=== PATIENT | female | born 1940 | race Caucasian/White ===

== ENCOUNTER 2017-04-11 11:20 | Inpatient (IN) | payer OTHER ==
[~2017-04-11] VITALS: Ht 165.1 cm; Wt 74.3 kg
[~2017-04-11 11:20] MED LIST: ALEN70TA2 OR; CHOLESTID
[2017-04-11] MEDS ORDERED: PANTOPRAZOLE 40 MG/10 ML VIAL IV STA (11:55)
[2017-04-11] MEDS ORDERED: SODIUM CHLORIDE 0.9% 500 ML IVB ONE (11:55)
[2017-04-11] MEDS ORDERED: HYDROmorphone HCL 2 MG/ML VL IV ONE (12:00)
[2017-04-11] MEDS ORDERED: MORPHINE SULFATE 10 MG/ML INJ 1ML SDV IV ONE (12:00)
[2017-04-11] MEDS ORDERED: ONDANSETRON HCL 4 MG/2 ML VIAL IV ONE (12:45)
[2017-04-11 12:59] LABS: Basophils # (auto) 0 uL; Basophils % (auto) 0.6 % (0.0-2.0); Eosinophils # (auto) 0 uL; Eosinophils % (auto) 0.1 % (0.0-7.0); Hematocrit 45.8 % (36.0-46.0); Hemoglobin 15.7 g/dL (12.2-16.2); Lymphocytes # (auto) 0.8 uL; Lymphocytes % (auto) 13.2 % (10.0-50.0); Mean Corpuscular Hemoglobin 29.2 pg (28.0-32.0); Mean Corpuscular Hgb Conc. 34.3 g/dL (32.0-36.0); Mean Corpuscular Volume 85.2 fL (80.0-100.0); Monocytes # (auto) 0.4 uL; Monocytes % (auto) 7.1 % (0.0-12.0); Neutrophils # (auto) 4.9 uL; Nucleated Red Blood Cells % 0.1 %; Platelet Count (auto) 169 10^3/uL (140-450); Red Blood Cells 5.38 10^6/uL (4.0-5.20); Red Cell Distribution Width 14.4 % (11.8-14.3); White Blood Cell 6.3 10^3/uL (4.4-10.8)
[2017-04-11 14:09] LABS: Alanine Aminotransferase 19 U/L (13-56); Alkaline Phosphatase 80 U/L (45-117); Amylase 44 U/L (25-115); Anion Gap 11 (5-15); Aspartate Aminotransferase 13 U/L (15-37); BUN/Creatinine Ratio 12.9; Bilirubin, Total 0.6 mg/dL (0.2-1.0); Blood Urea Nitrogen 11 mg/dL (7-18); Carbon Dioxide 23 mmol/L (21-32); Chloride 105 mmol/L (98-107); GFR African American 84 mL/min; GFR Non-African American 69 mL/min; Glucose 103 mg/dL (74-106); Lipase 107 U/L (73-393); Magnesium 2.3 mg/dL (1.6-2.6); Sodium 139 mmol/L (136-145); Total Protein 7.8 g/dL (6.4-8.2)
[2017-04-11] MEDS ORDERED: HYDROcodone-ACET 5/325MG TAB PO PRN (14:45)
[2017-04-11] MEDS ORDERED: ONDANSETRON HCL 4 MG/2 ML VIAL IV PRN (14:45)
[2017-04-11] MEDS ORDERED: PANTOPRAZOLE 40 MG/10 ML VIAL IV ONE (14:45)
[2017-04-11] MEDS: SODIUM CHLORIDE 0.9% 1,000 ML IV SCH (15:10)
[2017-04-11] MEDS ORDERED: PROMETHAZINE HCL 25 MG/ML 1ML IV ONE (15:30)
[2017-04-11 17:20] VITALS: BP 121/70
[2017-04-11] MEDS ORDERED: INFLUENZA QUAD 2017-2018 0.5 ML SYRG IM ONE (18:30)
[2017-04-11 22:00] VITALS: BP 132/70
[2017-04-11] MEDS: PANTOPRAZOLE 40 MG/10 ML VIAL IV SCH (22:30)
[2017-04-11 22:35] LABS: Urine Bacteria FEW /hpf (None Seen); Urine Blood 1+ /uL (Negative); Urine Mucus FEW (None Seen); Urine Specific Gravity 1.021 (1.001-1.035); Urine WBC 2 /hpf (0 - 5)
[2017-04-12] MEDS: SODIUM CHLORIDE 0.9% 1,000 ML IV SCH ×3 (01:22→23:35)
[2017-04-12 05:32] VITALS: BP 114/50
[2017-04-12] MEDS: HYDROmorphone HCL 2 MG/ML VL IV PRN ×4 (06:05→20:09)
[2017-04-12 07:35] LABS: Basophils # (auto) 0 uL; Basophils % (auto) 0.8 % (0.0-2.0); Eosinophils # (auto) 0 uL; Eosinophils % (auto) 0.2 % (0.0-7.0); Hematocrit 40.5 % (36.0-46.0); Hemoglobin 13.7 g/dL (12.2-16.2); Lymphocytes # (auto) 0.8 uL; Lymphocytes % (auto) 16.2 % (10.0-50.0); Mean Corpuscular Hemoglobin 29.3 pg (28.0-32.0); Mean Corpuscular Volume 86.3 fL (80.0-100.0); Monocytes # (auto) 0.5 uL; Monocytes % (auto) 10.2 % (0.0-12.0); Neutrophils # (auto) 3.8 uL; Neutrophils % (auto) 72.6 % (37.0-80.0); Nucleated Red Blood Cells % 0.1 %; Platelet Count (auto) 129 10^3/uL (140-450); Red Blood Cells 4.69 10^6/uL (4.0-5.20); Red Cell Distribution Width 14.3 % (11.8-14.3); White Blood Cell 5.2 10^3/uL (4.4-10.8)
[2017-04-12 07:48] LABS: INR 0.99 (0.9-1.15); Partial Thromboplastin Time 25.3 sec (22.64-33.71); Prothrombin Time 10.8 sec (9.37-12.3)
[2017-04-12 07:50] LABS: BUN/Creatinine Ratio 16.9; Calcium 7.6 mg/dL (8.5-10.1); Potassium 3.6 mmol/L (3.5-5.1)
[2017-04-12] MEDS: PANTOPRAZOLE 40 MG/10 ML VIAL IV SCH ×2 (08:40→21:07)
[2017-04-12 09:00] VITALS: BP 140/72
[2017-04-12] MEDS ORDERED: PANTOPRAZOLE 40 MG/10 ML VIAL IV SCH (10:00)
[2017-04-12] MEDS ORDERED: LORazepam 2MG/ML-1ML VIAL IV ONE (12:15)
[2017-04-12 13:00] VITALS: BP 123/69
[2017-04-12] MEDS: GABAPENTIN 100 MG CAP PO SCH ×2 (13:00→21:07)
[2017-04-12] MEDS: PROMETHAZINE HCL 25 MG/ML 1ML IV PRN ×2 (15:10→20:09)
[2017-04-12] MEDS ORDERED: IOHEXOL 300 MG/ML 100ML BOTTLE IJ ONE (15:34)
[2017-04-12 17:00] VITALS: BP 123/95
[2017-04-12] MEDS: SUCRALFATE 1 GM/10 ML ORAL SUSP PO SCH ×2 (17:15→21:06)
[2017-04-12] MEDS: METHYLPREDNISOLONE 4 MG TAB PO SCH ×2 (18:26→23:36)
[2017-04-12 22:00] VITALS: BP 120/72
[2017-04-13] MEDS: HYDROmorphone HCL 2 MG/ML VL IV PRN ×6 (03:05→18:25)
[2017-04-13] MEDS: METHYLPREDNISOLONE 4 MG TAB PO SCH ×3 (05:45→18:00)
[2017-04-13] MEDS: GABAPENTIN 100 MG CAP PO SCH ×3 (05:46→21:43)
[2017-04-13] MEDS: SUCRALFATE 1 GM/10 ML ORAL SUSP PO SCH (05:46)
[2017-04-13] MEDS: SODIUM CHLORIDE 0.9% 1,000 ML IV SCH ×2 (06:45→16:45)
[2017-04-13 08:30] VITALS: BP 122/57
[2017-04-13] MEDS ORDERED: diphenhdrAMINE HCL 50 MG/1 ML VL ONE (08:30)
[2017-04-13] MEDS ORDERED: LIDOCAINE VISCOUS 2% 15ML UD ONE (08:30)
[2017-04-13] MEDS ORDERED: SODIUM CHLORIDE LOCK 10 ML ONE (08:30)
[2017-04-13] MEDS ORDERED: FLUMAZENIL 0.1 MG/ML INJ 10ML MDV IV ONE (08:30)
[2017-04-13] MEDS ORDERED: MIDAZOLAM HCL 5 MG/ML-1ML VIAL ONE (08:30)
[2017-04-13] MEDS ORDERED: NALOXONE HCL 0.4 MG/ML VIAL ONE (08:30)
[2017-04-13] MEDS ORDERED: fentaNYL CITRATE 100 MCG/2 ML VL ONE (08:31)
[2017-04-13] MEDS ORDERED: IBUPROFEN 600 MG TAB PO PRN (09:15)
[2017-04-13] MEDS: PANTOPRAZOLE 40 MG TAB PO SCH (10:00)
[2017-04-13] MEDS: PROMETHAZINE HCL 25 MG/ML 1ML IV PRN (10:45)
[2017-04-13] MEDS ORDERED: cefTRIAXone 1GM/50ML D5W 50 ML IV ONE (12:15)
[2017-04-13 12:30] VITALS: BP 174/61
[2017-04-13] MEDS: metroNIDAZOLE 500MG/100ML 100 ML IV SCH ×2 (16:14→21:43)
[2017-04-13 17:37] VITALS: BP 182/88
[2017-04-13] MEDS ORDERED: KETOROLAC TROMETH 30 MG/ML 1ML VIAL IV SCH (18:00)
[2017-04-13] MEDS: KETOROLAC TROMETH 30 MG/ML 1ML VIAL IV SCH (20:25)
[2017-04-13 21:00] VITALS: BP 154/101
[2017-04-14] MEDS: HYDROmorphone HCL 2 MG/ML VL IV PRN ×2 (01:25→06:41)
[2017-04-14] MEDS: KETOROLAC TROMETH 30 MG/ML 1ML VIAL IV SCH ×3 (02:27→14:05)
[2017-04-14] MEDS: SODIUM CHLORIDE 0.9% 1,000 ML IV SCH ×3 (05:21→22:45)
[2017-04-14 05:47] VITALS: BP 147/72
[2017-04-14] MEDS: metroNIDAZOLE 500MG/100ML 100 ML IV SCH ×2 (05:50→14:05)
[2017-04-14] MEDS: GABAPENTIN 100 MG CAP PO SCH ×3 (05:50→21:49)
[2017-04-14] MEDS: METHYLPREDNISOLONE 4 MG TAB PO SCH ×4 (05:50→11:47)
[2017-04-14] MEDS: cefTRIAXone 1GM/50ML D5W 50 ML IV SCH (08:28)
[2017-04-14] MEDS: PANTOPRAZOLE 40 MG TAB PO SCH (08:29)
[2017-04-14 09:11] VITALS: BP 129/70
[2017-04-14 12:51] VITALS: BP 127/66
[2017-04-14 16:45] VITALS: BP 105/71
[2017-04-14] MEDS: metroNIDAZOLE 500 MG TAB PO SCH (21:49)
[2017-04-14 22:00] VITALS: BP 135/57
[2017-04-15 05:00] VITALS: BP 121/54
[2017-04-15 05:43] LABS: Basophils # (auto) 0.1 uL; Basophils % (auto) 0.9 % (0.0-2.0); Eosinophils # (auto) 0.3 uL; Eosinophils % (auto) 4.5 % (0.0-7.0); Hematocrit 39.8 % (36.0-46.0); Hemoglobin 13.7 g/dL (12.2-16.2); Lymphocytes # (auto) 1.3 uL; Lymphocytes % (auto) 22.7 % (10.0-50.0); Mean Corpuscular Hgb Conc. 34.3 g/dL (32.0-36.0); Mean Corpuscular Volume 84.6 fL (80.0-100.0); Monocytes # (auto) 0.8 uL; Monocytes % (auto) 14.1 % (0.0-12.0); Neutrophils # (auto) 3.3 uL; Neutrophils % (auto) 57.8 % (37.0-80.0); Nucleated Red Blood Cells % 0.6 %; Platelet Count (auto) 126 10^3/uL (140-450); Red Blood Cells 4.71 10^6/uL (4.0-5.20); Red Cell Distribution Width 14.2 % (11.8-14.3); White Blood Cell 5.8 10^3/uL (4.4-10.8)
[2017-04-15 05:53] LABS: Calcium 7.9 mg/dL (8.5-10.1)
[2017-04-15 05:56] LABS: BUN/Creatinine Ratio 13.2
[2017-04-15 05:58] LABS: Potassium 2.4 mmol/L (3.5-5.1)
[2017-04-15] MEDS: GABAPENTIN 100 MG CAP PO SCH ×2 (06:09→13:44)
[2017-04-15] MEDS: metroNIDAZOLE 500 MG TAB PO SCH ×3 (06:09→22:01)
[2017-04-15] MEDS ORDERED: POTASSIUM CHL 20MEQ/50ML 50 ML IV ONE ×2 (06:15→08:00)
[2017-04-15 09:00] VITALS: BP 123/70
[2017-04-15] MEDS: PANTOPRAZOLE 40 MG TAB PO SCH (09:02)
[2017-04-15] MEDS: cefTRIAXone 1GM/50ML D5W 50 ML IV SCH (09:02)
[2017-04-15] MEDS ORDERED: POTASSIUM CHLORIDE 40 MEQ, LIDOCAINE 1% (LOCAL ANESTH.) 4 ML in SODIUM CHL 0.9% 250 ML IV ONE (11:15)
[2017-04-15] MEDS: DIPHENOXYLATE W/ATROPINE 2.5 MG TAB PO PRN ×2 (11:49→19:16)
[2017-04-15] MEDS: SODIUM CHLORIDE 0.9% 1,000 ML IV SCH ×2 (12:42→18:45)
[2017-04-15 13:00] VITALS: BP 113/43
[2017-04-15 17:00] VITALS: BP 139/73
[2017-04-15] MEDS ORDERED: COLESTIPOL 1 GM PO SCH (18:00)
[2017-04-15 22:00] VITALS: BP 144/72
[2017-04-16] MEDS: SODIUM CHLORIDE 0.9% 1,000 ML IV SCH (04:45)
[2017-04-16 05:30] VITALS: BP 147/75
[2017-04-16 05:53] LABS: Basophils # (auto) 0.1 uL; Eosinophils # (auto) 0.6 uL; Eosinophils % (auto) 7.6 % (0.0-7.0); Hematocrit 41.4 % (36.0-46.0); Hemoglobin 14.4 g/dL (12.2-16.2); Lymphocytes # (auto) 2.3 uL; Lymphocytes % (auto) 29.2 % (10.0-50.0); Mean Corpuscular Hemoglobin 29.5 pg (28.0-32.0); Mean Corpuscular Hgb Conc. 34.7 g/dL (32.0-36.0); Mean Corpuscular Volume 84.8 fL (80.0-100.0); Monocytes # (auto) 0.9 uL; Monocytes % (auto) 11.5 % (0.0-12.0); Neutrophils # (auto) 3.9 uL; Neutrophils % (auto) 50.7 % (37.0-80.0); Nucleated Red Blood Cells % 0.1 %; Platelet Count (auto) 147 10^3/uL (140-450); Red Blood Cells 4.88 10^6/uL (4.0-5.20); Red Cell Distribution Width 14.6 % (11.8-14.3); White Blood Cell 7.8 10^3/uL (4.4-10.8)
[2017-04-16 06:14] LABS: Albumin 2.7 g/dL (3.4-5.0); Calcium 7.6 mg/dL (8.5-10.1)
[2017-04-16 06:16] LABS: BUN/Creatinine Ratio 6.6
[2017-04-16 06:18] LABS: Bilirubin, Total 0.4 mg/dL (0.2-1.0)
[2017-04-16 06:28] LABS: Potassium 2.5 mmol/L (3.5-5.1)
[2017-04-16] MEDS: metroNIDAZOLE 500 MG TAB PO SCH ×2 (06:36→14:04)
[2017-04-16 10:08] VITALS: BP 136/81
[2017-04-16] MEDS: PANTOPRAZOLE 40 MG TAB PO SCH (10:48)
[2017-04-16 13:34] VITALS: BP 142/79
[2017-04-16] MEDS: DIPHENOXYLATE W/ATROPINE 2.5 MG TAB PO PRN (14:04)
[2017-04-16] MEDS ORDERED: POTASSIUM CHL 10% (20 MEQ/15ML) 15ml ORAL SOLN PO ONE (14:15)
[2017-04-16] MEDS ORDERED: POTASSIUM CHL 10% (20 MEQ/15ML) 15ml ORAL SOLN GT ONE (14:15)
[2017-04-16 15:05] VITALS: BP 136/81
[2017-04-16 16:31] VITALS: BP 137/75
== END 2017-04-16 17:30 | disposition home or self-care (01) | DRG 372 ==
LOC: ER 11:20 → OVERFLOW 11:21 → EDUNIT# 11:21 → EAST 16:23 → WEST WING 18:18
PROVIDERS: ADMIT Internal Medicine; ATTEND Internal Medicine
PROC: 0DB78ZX Excision of Stomach, Pylorus, Via Natural or Artificial Opening Endoscopic, Diagnostic (ICD-10-PCS; principal; 2017-04-13 09:05)
DX: A04.72 Enterocolitis due to Clostridium difficile, not specified as recurrent (principal); M48.54XA Collapsed vertebra, not elsewhere classified, thoracic region, initial encounter for fracture; M48.56XA Collapsed vertebra, not elsewhere classified, lumbar region, initial encounter for fracture; E87.6 Hypokalemia; E78.5 Hyperlipidemia, unspecified; I70.0 Atherosclerosis of aorta; Z60.2 Problems related to living alone; K52.9 Noninfective gastroenteritis and colitis, unspecified; M94.0 Chondrocostal junction syndrome [Tietze]; Z23 Encounter for immunization; Z90.49 Acquired absence of other specified parts of digestive tract; Z90.710 Acquired absence of both cervix and uterus; Z95.0 Presence of cardiac pacemaker
CPT/HCPCS: 36415; 43239; 71010; 71101; 74176; 74177; 80048; 80053; 81001; 82150; 83690; 83735; 84484; 85025; 85610; 85730; 87493; 93005; 94761; 96361; 96374; 96375; C9113; J0696; J1885; J2001; J2250; J2405; J3490

== ENCOUNTER → 2017-05-12 | Outpatient (CLI) | payer OTHER ==
[2017-05-12 10:15] LABS: Basophils # (auto) 0 uL; Basophils % (auto) 0.4 % (0.0-2.0); Eosinophils # (auto) 0.4 uL; Hematocrit 44.9 % (36.0-46.0); Hemoglobin 14.9 g/dL (12.2-16.2); Mean Corpuscular Hemoglobin 29.4 pg (28.0-32.0); Mean Corpuscular Hgb Conc. 33.2 g/dL (32.0-36.0); Mean Corpuscular Volume 88.4 fL (80.0-100.0); Mean Platelet Volume 8.3 fL (6.9-10.8); Monocytes # (auto) 0.8 uL; Monocytes % (auto) 6.9 % (0.0-12.0); Neutrophils # (auto) 8.5 uL; Neutrophils % (auto) 72.7 % (37.0-80.0); Nucleated Red Blood Cells % 0.2 %; Platelet Count (auto) 253 10^3/uL (140-450); Red Cell Distribution Width 14.5 % (11.8-14.3); White Blood Cell 11.7 10^3/uL (4.4-10.8)
[2017-05-12 10:38] LABS: Albumin 3.6 g/dL (3.4-5.0); BUN/Creatinine Ratio 10.7; Bilirubin, Total 0.6 mg/dL (0.2-1.0); Calcium 8.9 mg/dL (8.5-10.1); Potassium 3.4 mmol/L (3.5-5.1); Total Protein 7.9 g/dL (6.4-8.2)
== END | disposition home or self-care (01) ==
LOC: LAB 09:27
PROVIDERS: ATTEND Internal Medicine
DX: J40 Bronchitis, not specified as acute or chronic (principal)
CPT/HCPCS: 36415; 80053; 84439; 85025

== ENCOUNTER → 2017-08-29 | Outpatient (CLI) | payer OTHER | END | disposition home or self-care (01) | LOC: XYW 11:05 | PROVIDERS: ATTEND Internal Medicine | DX: I35.1 Nonrheumatic aortic (valve) insufficiency (principal); Z95.0 Presence of cardiac pacemaker | CPT/HCPCS: 93306 ==

== ENCOUNTER → 2017-11-15 | Outpatient (CLI) | payer OTHER ==
[2017-11-15 08:49] LABS: Basophils # (auto) 0 uL; Basophils % (auto) 0.7 % (0.0-2.0); Eosinophils # (auto) 0.3 uL; Eosinophils % (auto) 4.9 % (0.0-7.0); Hematocrit 44.2 % (36.0-46.0); Hemoglobin 14.7 g/dL (12.2-16.2); Lymphocytes # (auto) 1.4 uL; Lymphocytes % (auto) 22.8 % (10.0-50.0); Mean Corpuscular Hemoglobin 28.9 pg (28.0-32.0); Mean Corpuscular Hgb Conc. 33.4 g/dL (32.0-36.0); Mean Corpuscular Volume 86.7 fL (80.0-100.0); Monocytes # (auto) 0.3 uL; Monocytes % (auto) 5.7 % (0.0-12.0); Neutrophils % (auto) 65.9 % (37.0-80.0); Platelet Count (auto) 146 10^3/uL (140-450); Red Blood Cells 5.09 10^6/uL (4.0-5.20); White Blood Cell 6.1 10^3/uL (4.4-10.8)
[2017-11-15 09:45] LABS: Albumin 3.8 g/dL (3.4-5.0); BUN/Creatinine Ratio 11.5; Bilirubin, Total 0.7 mg/dL (0.2-1.0); Potassium 3.9 mmol/L (3.5-5.1); Total Protein 7.1 g/dL (6.4-8.2)
[2017-11-16 11:49] LABS: Urine Bacteria MANY /hpf (None Seen); Urine Blood TRACE /uL (Negative); Urine Specific Gravity 1.011 (1.001-1.035); Urine WBC 2 /hpf (0 - 5)
== END | disposition home or self-care (01) ==
LOC: LAB 07:58
PROVIDERS: ATTEND Internal Medicine
DX: I10 Essential (primary) hypertension (principal); I47.1 Supraventricular tachycardia; Z95.0 Presence of cardiac pacemaker
CPT/HCPCS: 36415; 80053; 80061; 81001; 82043; 82306; 84439; 84443; 85025; 85652; 86038; 86431; 86812

== ENCOUNTER → 2018-01-08 | Outpatient (CLI) | payer OTHER ==
[2018-01-08 14:13] LABS: Albumin 3.9 g/dL (3.4-5.0); BUN/Creatinine Ratio 17.3; Bilirubin, Total 0.6 mg/dL (0.2-1.0); Calcium 8.7 mg/dL (8.5-10.1); Potassium 3.8 mmol/L (3.5-5.1); Total Protein 7.5 g/dL (6.4-8.2)
== END | disposition home or self-care (01) ==
LOC: LAB 12:56
PROVIDERS: ATTEND Internal Medicine
DX: E53.8 Deficiency of other specified B group vitamins (principal); I10 Essential (primary) hypertension; E55.9 Vitamin D deficiency, unspecified; E78.5 Hyperlipidemia, unspecified
CPT/HCPCS: 36415; 80053; 82306; 82607

== ENCOUNTER → 2018-02-22 | Outpatient (CLI) | payer OTHER | END | disposition home or self-care (01) | LOC: LAB 14:33 | PROVIDERS: ATTEND Internal Medicine | DX: R10.9 Unspecified abdominal pain (principal) | CPT/HCPCS: 82784; 83516; 86255 ==

== ENCOUNTER → 2018-02-26 | Outpatient (CLI) | payer OTHER | END | disposition home or self-care (01) | LOC: LAB 12:04 | PROVIDERS: ATTEND Internal Medicine Gastroenterology | DX: R10.9 Unspecified abdominal pain (principal) | CPT/HCPCS: 87045; 87493; 87899 ==

== ENCOUNTER 2018-10-01 16:35 | Inpatient (IN) | payer OTHER ==
[~2018-10-01] VITALS: Ht 165.1 cm; Wt 69.6 kg
[2018-10-01 17:30] VITALS: BP 109/63
--- NOTE | 2018-10-01 17:45 | NUR ---
MS admit from ER MAURIZIO FINE A admitted to tele/MS after SBAR received. Patient oriented to Gaby Jeronimo, primary RN, unit, room, bed, and unit policies regarding patient care and visiting hours. Patient weighed by bedscale and encouraged to call if they need something. All questions and concerns addressed, patient verbalized understanding. Pt denies any pain or discomfort at this time, paged hospitalist for admission orders.
[2018-10-01] MEDS ORDERED: MORPHINE SULF INJ 2 MG/ML SYRINGE 1ML IV PRN (18:30)
[2018-10-01] MEDS ORDERED: NITROGLYCERIN 0.4 MG SL TAB SL PRN (18:30)
--- NOTE | 2018-10-01 18:40 | NUR ---
Michelle / hospitalist at bed side to see pt.
[2018-10-01] MEDS ORDERED: POM PO (18:50)
[2018-10-01] MEDS ORDERED: ATEN-60 PO (18:50)
[2018-10-01] MEDS ORDERED: OMEP20TA PO (18:51)
--- NOTE | 2018-10-01 19:40 | NUR ---
Opening Shift Note Assumed care of patient, patient lying, awake, alert and oriented x 4 with clear speech and follows directions. On room air with even and unlabored respirations with no SOB or distress. Patient ate 25% of dinner with no nausea or vomiting and tolerated well. Patient independently turns in bed ambulates with steady gait. IV to right forearm intact and patent. Bed low locked position with side rails up x 2 and call light within reach. Instructed on POC and to call for assist PRN, will continue to monitor for changes Q1hr and PRN. Addendum: 10/02/18 at 2312 by Shanthi Page RN RN wrong date and time
[2018-10-01 19:58] LABS: Basophils # (auto) 0 uL; Basophils % (auto) 0.3 % (0.0-2.0); Eosinophils # (auto) 0.2 uL; Eosinophils % (auto) 3.2 % (0.0-7.0); Hematocrit 44.1 % (36.0-46.0); Hemoglobin 14.7 g/dL (12.2-16.2); Lymphocytes # (auto) 2.2 uL; Lymphocytes % (auto) 30.3 % (10.0-50.0); Mean Corpuscular Hgb Conc. 33.3 g/dL (32.0-36.0); Mean Corpuscular Volume 87.1 fL (80.0-100.0); Monocytes # (auto) 0.5 uL; Monocytes % (auto) 6.6 % (0.0-12.0); Neutrophils # (auto) 4.4 uL; Neutrophils % (auto) 59.6 % (37.0-80.0); Platelet Count (auto) 179 10^3/uL (140-450); Red Blood Cells 5.07 10^6/uL (4.0-5.20); White Blood Cell 7.3 10^3/uL (4.4-10.8)
--- NOTE | 2018-10-01 20:00 | NUR ---
Opening Shift Note Assumed care of patient, patient lying down resting, wakes to name, alert and oriented x 4 with clear speech and follows directions. On room air with even and unlabored respirations with no SOB or distress. Patient ate 25% of dinner with no nausea or vomiting and tolerated well. Active bowel sounds, abd soft, tender upon palpation to left upper abd. Patient reports 8/10 pain, headache, will follow up with pain medications per orders. Patient independently turns in bed ambulates with steady gait. IV to right forearm intact and patent. Bed low locked position with side rails up x 2 and call light within reach. Instructed on POC and to call for assist PRN, will continue to monitor for changes Q1hr and PRN.
[2018-10-01 20:13] LABS: INR 0.93 (0.9-1.15); Partial Thromboplastin Time 26.2 sec (23.78-33.04)
[2018-10-01] MEDS: ACETAMINOPHEN 500 MG TAB PO PRN (20:13)
[2018-10-01 20:14] LABS: Albumin 3.7 g/dL (3.4-5.0); Calcium 8.6 mg/dL (8.5-10.1); Potassium 3.6 mmol/L (3.5-5.1)
[2018-10-01 20:18] LABS: BUN/Creatinine Ratio 18.6; Bilirubin, Total 0.7 mg/dL (0.2-1.0); Total Protein 6.8 g/dL (6.4-8.2)
[2018-10-01] MEDS: HYDROcodone-ACET 5/325MG TAB PO PRN (20:19)
[2018-10-01 22:00] VITALS: BP 131/60
[2018-10-02 05:00] VITALS: BP 120/52
--- NOTE | 2018-10-02 07:03 | NUR ---
Closing Note Patient sleeping with even and unlabored respirations, noted chest rise and fall. No s/s of distress. endorsed care to day shift RN.
--- NOTE | 2018-10-02 07:30 | NUR ---
STATUS PT RESTING IN BED WITH EYES CLOSED. RESPIRATIONS EQUAL AND UNLABORED. PT IS NPO AT THIS TIME FOR POSSIBLE EGD. NO CURRENT S/S OF DISTRESS. WILL CONTINUE TO MONITOR.
--- NOTE | 2018-10-02 08:10 | NUR ---
DR MENDIETA PAGED TO CLARIFY POSSIBLE EGD STATUS, DUE TO PT BEING NPO. STATES HE WILL COME SEE THE PT LATER, NO NEW ORDERS GIVEN
[2018-10-02 08:48] LABS: Urine Bacteria FEW /hpf (None Seen); Urine Blood TRACE /uL (Negative); Urine Mucus FEW (None Seen); Urine Specific Gravity 1.021 (1.001-1.035); Urine WBC 88 /hpf (0 - 5)
[2018-10-02] MEDS: PANTOPRAZOLE 40 MG/10 ML VIAL INJ IV SCH ×3 (09:44→20:31)
--- NOTE | 2018-10-02 09:59 | NUR ---
MEDICATION PT REFUSED 1000 MEDICATION STATING SHE FELT LIKE SHE DIDN'T NEED IT AT THIS TIME.
[2018-10-02] MEDS ORDERED: CEFTRIAXONE SODIUM 2 GM in D5W 5% 50 ML IV ONE (10:00)
--- NOTE | 2018-10-02 12:36 | NUR ---
DR BERTRAND AT BEDSIDE ORDERS GIVEN FOR IMODIUM AND STOOL FOR C.DIF
[2018-10-02] MEDS ORDERED: LOPERAMIDE HCL 2 MG CAP PO PRN (12:45)
[2018-10-02 13:00] VITALS: BP 130/59
--- NOTE | 2018-10-02 14:00 | NUR ---
DR MENDIETA AT BEDSIDE PT SCHEDULED FOR EGD TOMORROW
[2018-10-02 17:00] VITALS: BP 138/60
--- NOTE | 2018-10-02 19:40 | NUR ---
Opening Shift Note Assumed care of patient, patient lying, awake, alert and oriented x 4 with clear speech and follows directions. On room air with even and unlabored respirations with no SOB or distress. Patient ate 25% of dinner with no nausea or vomiting and tolerated well. Patient report diarrhea, and states it is a chronic problem. Patient independently turns in bed ambulates with steady gait. IV to right forearm intact and patent. Bed low locked position with side rails up x 2 and call light within reach. Instructed on POC and to call for assist PRN, will continue to monitor for changes Q1hr and PRN.
[2018-10-02] MEDS: LOPERAMIDE HCL 2 MG CAP PO PRN (20:31)
[2018-10-02 22:03] VITALS: BP 145/69
[2018-10-02] MEDS: HYDROcodone-ACET 5/325MG TAB PO PRN (22:47)
[2018-10-03 05:16] VITALS: BP 113/56
[2018-10-03 06:02] LABS: Basophils # (auto) 0 uL; Basophils % (auto) 0.7 % (0.0-2.0); Eosinophils # (auto) 0.4 uL; Eosinophils % (auto) 6.4 % (0.0-7.0); Hematocrit 41.3 % (36.0-46.0); Hemoglobin 14.1 g/dL (12.2-16.2); Lymphocytes % (auto) 31.4 % (10.0-50.0); Mean Corpuscular Hemoglobin 29.9 pg (28.0-32.0); Mean Corpuscular Hgb Conc. 34.2 g/dL (32.0-36.0); Mean Corpuscular Volume 87.5 fL (80.0-100.0); Monocytes # (auto) 0.5 uL; Monocytes % (auto) 8.5 % (0.0-12.0); Neutrophils # (auto) 3.3 uL; Nucleated Red Blood Cells % 0.2 %; Platelet Count (auto) 153 10^3/uL (140-450); Red Blood Cells 4.72 10^6/uL (4.0-5.20); White Blood Cell 6.3 10^3/uL (4.4-10.8)
[2018-10-03 06:29] LABS: Albumin 3.3 g/dL (3.4-5.0); BUN/Creatinine Ratio 22.1; Magnesium 2.2 mg/dL (1.6-2.6); Potassium 3.7 mmol/L (3.5-5.1)
[2018-10-03 06:32] LABS: Bilirubin, Total 0.7 mg/dL (0.2-1.0); Total Protein 6.2 g/dL (6.4-8.2)
--- NOTE | 2018-10-03 07:10 | NUR ---
Closing Note Patient sleeping with even and unlabored respirations, noted chest rise and fall. No s/s of distress. endorsed care to day shift RN.
[2018-10-03 08:00] VITALS: BP 106/62
[2018-10-03 09:00] VITALS: BP 106/62
[2018-10-03] MEDS ORDERED: cefTRIAXone 1GM/50ML D5W 50 ML IV SCH (09:00)
[2018-10-03] MEDS: PANTOPRAZOLE 40 MG/10 ML VIAL INJ IV SCH (09:35)
[2018-10-03] MEDS ORDERED: LIDOCAINE VISCOUS 2% 15ML UD ONE (10:41)
[2018-10-03] MEDS ORDERED: SODIUM CHLORIDE LOCK 10 ML ONE (10:41)
[2018-10-03] MEDS ORDERED: diphenhdrAMINE HCL 50 MG/1 ML VL ONE (10:42)
--- NOTE | 2018-10-03 12:25 | NUR ---
PATIENT OFF FLOOR PATIENT TRANSPORTED TO [facility] VIA GURNEY BY THIS RN AND JULIA GOMES, NO S/S SOB/PAIN/DISTRESS NOTED
[2018-10-03] MEDS: fentaNYL CITRATE 100 MCG/2 ML VL ONE ×2 (12:45→12:48)
[2018-10-03] MEDS: MIDAZOLAM HCL 5 MG/ML-1ML VIAL ONE ×2 (12:45→12:48)
[2018-10-03 13:00] VITALS: BP 110/50
--- NOTE | 2018-10-03 13:35 | NUR ---
PATIENT RETURNED TO FLOOR BEDSIDE REPORT GIVEN, PT QUESTIONS ANSWERED, PT IS CURRENTLY SLEEPY BUT EASILY AROUSES, PATIENTS IV INFILTRATED AND WAS REMOVED TOWARDS THE END OF THE PROCEDURE PER SERVICE SPRINKLER HELPER, A NEW IV LINE WAS NOT REINSERTED, THIS RN WILL PLACE NEW IV LINE
--- NOTE | 2018-10-03 13:50 | NUR ---
IV LINE RETURNED TO PT'S ROOM TO INSERT NEW IV LINE, PT REQUESTED TO WAIT AND PLACE IV LATER SHE WANTS A NAP RIGHT NOW, WILL ATTEMPT TO PLACE NEW IV LINE LATER
[2018-10-03 16:52] VITALS: BP 128/67
--- NOTE | 2018-10-03 17:26 | NUR ---
IV LINE SPOKE WITH PATIENT AGAIN ABOUT PLACING A NEW IV LINE, PATIENT HIGHLY PREFERS TO NOT HAVE A NEW IV, SHE REQUESTS THAT HER MEDICATIONS BE GIVEN PILLS RATHER THAN IV, EXPLAINED IMPORTANCE OF IV LINE TO PATIENT, PATIENT STILL REFUSING IV LINE AT THIS TIME
--- NOTE | 2018-10-03 19:30 | NUR ---
Opening Shift Note Assumed care of patient, awake and alert x4. No S/S of distress/SOB on room air. Denies pain at this time. NO IV at this time will page hospitalist patient is refusing new IV to be placed. Bed locked in lowest position call light within reach. Instructed on POC and to call for assist PRN, will continue to monitor for changes Q1hr and PRN.
--- NOTE | 2018-10-03 20:03 | NUR ---
Paged hospitalist regarding patient does not have IV access, patient refusing IV access. Patient stated she has been poked too many times. awaiting call back.
--- NOTE | 2018-10-03 21:00 | NUR ---
Hospitalist James called back made aware of patient REFUSING IV placement. Orders received read back and verified. see Orders.
[2018-10-03 22:01] VITALS: BP 95/57
[2018-10-04] VITALS (7 sets, daily range): BP systolic 98–123; BP diastolic 57–66
--- NOTE | 2018-10-04 07:45 | NUR ---
URINE SAMPLE PT WAS INSTRUCTED TO PROVIDE A URINE SAMPLE, HAT WAS PLACED IN TOILET, PT ACCIDENTLY "FORGOT" AND REMOVED THE HAT PRIOR TO URINATING, PT REEDUCATED ON URINATING IN THE HAT AND THEN CALLING THE NURSE TO COLLECT THE SAMPLE, PT VERBALIZED UNDERSTANDING
[2018-10-04] MEDS: CIPROFLOXACIN HCL 500 MG TAB PO SCH ×2 (10:49→22:00)
[2018-10-04] MEDS: HYDROcodone-ACET 5/325MG TAB PO PRN ×2 (10:50→17:16)
--- NOTE | 2018-10-04 11:59 | NUR ---
STOOL UPDATE PATIENT HAS NOT HAD A BOWEL MOVEMENT DURING DAY SHIFT TODAY OR YESTERDAY, PT STATES LAST BM WAS SATURDAY 09/30, UNABLE TO OBTAIN SAMPLES FOR C-DIFF, PATIENT WOULD ALSO NO LONGER MEET CRITERIA FOR C-DIFF SHE HAS HAD IMODIUM AND ANTIBIOTICS, HOSPITALIST WILL BE INFORMED
--- NOTE | 2018-10-04 17:14 | NUR ---
PAIN ATTEMPTING TO D/C PATIENT AND PT IS REFUSING, PT IS IN PAIN AND CRYING, PAGED, WILL AWAIT RETURN CALL
--- NOTE | 2018-10-04 17:53 | NUR ---
awaiting return call had substation design draftsperson hospitalist paged, patient is excessively vomiting, family is now in the room and very concerned with her condition, pt and family feel they are not ready for her to d/c, pt expresses intense pain in left flank radiating to back, pt was given another dose of norco, will await return call from
[2018-10-04] MEDS ORDERED: KETOROLAC TROMETH 60MG/2ML VIAL IM ONE (18:45)
--- NOTE | 2018-10-04 18:55 | NUR ---
MD AT BEDSIDE DR SOARES (THE PATIENTS FAMILY DOCTOR) WAS ROUNDING, SAW THE PT IN DISTRESS, NEW ORDERS FOR PAIN MEDS, D/C ORDER TO BE HELD FOR NOW
--- NOTE | 2018-10-04 19:30 | NUR ---
PATIENTS FAMILY UPSET AND PATIENT HAVING EXTREME LEFT SIDED PAIN 10/10 THAT RADIATES TO LEFT LOWER FLANK PAIN. ORDER FOR TORADOL IV. WILL ADMINISTER WITH ZOFRAN DUE TO VOMITING WELL. FAMILY AT BEDSIDE. CONTINUING TO MONITOR.
[2018-10-04] MEDS: ONDANSETRON HCL 4 MG/2 ML VIAL IV PRN (19:40)
[2018-10-04] MEDS: KETOROLAC TROMETH 30 MG/ML 1ML VIAL IV PRN (19:50)
--- NOTE | 2018-10-04 20:30 | NUR ---
Patient having some relief of pain at 12/19 from toradol. Will continue to monitor. Call light within reach. Addendum: 10/05/18 at 0512 by DAMIEN ALLEN RN Spoke with hospitalist around 2029 and told me we we will just monitor the patient .
--- NOTE | 2018-10-04 22:00 | NUR ---
Patient crying again and vomiting. Administered morphine per order and paged MD again. Gave ice chips and a heat pack again to try to help with her pain. Patient did not want me to leave the room. Stating "dont leave me, i cant take this." sat with patient and tried to make her comfortable for 30 minutes. Monitoring often. Held cipro due to emesis.
--- NOTE | 2018-10-04 22:30 | NUR ---
Spoke with Hospitalist howard, updated him again regarding patients pain which just started this evening and sounds like possible kidney stones. new order for ct abdomen/pelvis placed.
[2018-10-04] MEDS: MORPHINE SULF INJ 2 MG/ML SYRINGE 1ML IV PRN (23:52)
--- NOTE | 2018-10-05 04:00 | NUR ---
Resting well for the last 3-4 hours. No distress noted. Call light within reach and bed low
[2018-10-05 05:12] VITALS: BP 100/59
--- NOTE | 2018-10-05 07:10 | NUR ---
Opening Note Received report from material handler 2nd shift RN. Patient is awake, alert and oriented x4. No signs or symptoms of distress noted at this time. Patient states abdominal and left flank pain 8/10, is requesting pain medication. Will medicate per orders. Reviewed plan of care with patient, patient verbalized understanding. Bed in low and locked position, call light within reach. Will continue to monitor Q1 hour and PRN.
[2018-10-05] MEDS: MORPHINE SULF INJ 2 MG/ML SYRINGE 1ML IV PRN ×3 (08:24→20:51)
[2018-10-05 09:00] VITALS: BP 132/83
[2018-10-05] MEDS: CIPROFLOXACIN HCL 500 MG TAB PO SCH ×2 (10:02→22:24)
[2018-10-05] MEDS ORDERED: traMADol HCL 50 MG TAB PO ONE (12:15)
[2018-10-05 12:49] LABS: Basophils # (auto) 0.1 uL; Basophils % (auto) 0.6 % (0.0-2.0); Eosinophils # (auto) 0.1 uL; Eosinophils % (auto) 1.3 % (0.0-7.0); Hematocrit 43.2 % (36.0-46.0); Hemoglobin 14.6 g/dL (12.2-16.2); Lymphocytes # (auto) 2.3 uL; Lymphocytes % (auto) 23.8 % (10.0-50.0); Mean Corpuscular Hemoglobin 29.3 pg (28.0-32.0); Mean Corpuscular Hgb Conc. 33.8 g/dL (32.0-36.0); Mean Corpuscular Volume 86.8 fL (80.0-100.0); Monocytes # (auto) 0.7 uL; Monocytes % (auto) 7.1 % (0.0-12.0); Neutrophils # (auto) 6.4 uL; Neutrophils % (auto) 67.2 % (37.0-80.0); Nucleated Red Blood Cells % 0.1 %; Platelet Count (auto) 173 10^3/uL (140-450); Red Blood Cells 4.98 10^6/uL (4.0-5.20); White Blood Cell 9.5 10^3/uL (4.4-10.8)
[2018-10-05 13:00] VITALS: BP 94/47
[2018-10-05 13:06] LABS: Potassium 3.5 mmol/L (3.5-5.1)
[2018-10-05 13:09] LABS: Albumin 3.4 g/dL (3.4-5.0); Calcium 8.3 mg/dL (8.5-10.1)
[2018-10-05 13:11] LABS: BUN/Creatinine Ratio 14.9
[2018-10-05 13:14] LABS: Bilirubin, Total 0.6 mg/dL (0.2-1.0); Total Protein 6.7 g/dL (6.4-8.2)
[2018-10-05 16:44] VITALS: BP 90/52
--- NOTE | 2018-10-05 19:15 | NUR ---
CLOSING NOTE Report given to night custodian RN. No signs or symptoms of distress noted at this time. Urine sample collected and sent to lab
--- NOTE | 2018-10-05 19:30 | NUR ---
Opening Shift Note Assumed care of patient, awake and alert x4. No S/S of distress/SOB on room air. Reports pain at this time. Will administer pain medication. Bed locked in lowest position call light within reach. Instructed on POC and to call for assist PRN, will continue to monitor for changes Q1hr and PRN.
[2018-10-05 22:00] VITALS: BP 86/58
--- NOTE | 2018-10-06 02:30 | NUR ---
Rounds Patient sleeping no S/S of distress or pain, respirations non-labored. Will continue to monitor changes PRN.
[2018-10-06 05:00] VITALS: BP 85/50
[2018-10-06] MEDS: MORPHINE SULF INJ 2 MG/ML SYRINGE 1ML IV PRN ×3 (07:53→22:04)
[2018-10-06 08:07] VITALS: BP 93/46
[2018-10-06] MEDS ORDERED: SODIUM CHLORIDE 0.9% 500 ML IV ONE (09:45)
[2018-10-06] MEDS: CIPROFLOXACIN HCL 500 MG TAB PO SCH ×2 (11:17→22:04)
[2018-10-06 11:54] VITALS: BP 107/60
--- NOTE | 2018-10-06 12:05 | NUR ---
NUTRITION ASSESSMENT NOTES Please refer to link notes of nutrition screen form filed under the intervention section of the plan of care for further details. Est. Needs: 1750 kcal to 2100 kcal (25-30 kcal/kgBW), 50 gms to 70 gms pro (0.8-1.0 gm/kgBW). Will continue to monitor pertinent labs and reassess nutrient need prn Thank you. Addendum: 10/06/18 at [address] Amended: Links added.
[2018-10-06] MEDS: ACETAMINOPHEN 500 MG TAB PO PRN (15:38)
[2018-10-06 16:48] VITALS: BP 97/54
--- NOTE | 2018-10-06 18:00 | NUR ---
Pt alert and oriented, showing no change from initial assessment. Morphine given, times 2, during this shift for c/o left flank pain, with good effectiveness. No other c/o pain or discomfort.
--- NOTE | 2018-10-06 19:45 | NUR ---
received report from day rn poc reviewed
--- NOTE | 2018-10-06 20:30 | NUR ---
resting with hob up resp even and unlabored, call light within reach bed alarm intact, all questions and concerns addressed, bed bath given and linen change
[2018-10-06 22:00] VITALS: BP 124/72
[2018-10-07 04:45] VITALS: BP 117/68
--- NOTE | 2018-10-07 05:01 | NUR ---
no change or c/o discomfort, call light within reach
--- NOTE | 2018-10-07 07:00 | NUR ---
awoke pt will try to use bedside commode, resp even and unlabored will continue to monitor and report off to am nurse
[2018-10-07] MEDS: MORPHINE SULF INJ 2 MG/ML SYRINGE 1ML IV PRN ×3 (08:09→21:30)
[2018-10-07 08:10] VITALS: BP 102/57
[2018-10-07 08:11] VITALS: BP 123/69
[2018-10-07] MEDS: CIPROFLOXACIN HCL 500 MG TAB PO SCH ×2 (10:30→21:26)
[2018-10-07 12:18] VITALS: BP 108/65
[2018-10-07] MEDS: FLUCONAZOLE 200MG/100ML 100 ML IV SCH ×2 (16:10→17:53)
[2018-10-07 16:17] VITALS: BP 115/70
[2018-10-07] MEDS: ACETAMINOPHEN 500 MG TAB PO PRN (17:53)
[2018-10-07] MEDS: LOPERAMIDE HCL 2 MG CAP PO PRN ×2 (18:05→21:26)
--- NOTE | 2018-10-07 19:30 | NUR ---
received pt from day rn poc reviewed
[2018-10-07 22:08] VITALS: BP 145/83
--- NOTE | 2018-10-07 22:47 | NUR ---
resting comfortable after pain med given, call light within reach, bed alarm intact, resp even and unlabored
[2018-10-08 04:58] VITALS: BP 113/65
--- NOTE | 2018-10-08 07:02 | NUR ---
report given to am nurse poc reviewed
[2018-10-08 09:00] VITALS: BP 116/72
[2018-10-08] MEDS: KETOROLAC TROMETH 30 MG/ML 1ML VIAL IV PRN ×2 (09:12→22:56)
--- NOTE | 2018-10-08 09:12 | NUR ---
Patient stated she's in severe pain, lower back pain. Ketorolac IVP given for pain as ordered.
[2018-10-08] MEDS: FLUCONAZOLE 200MG/100ML 100 ML IV SCH (09:31)
[2018-10-08] MEDS: CIPROFLOXACIN HCL 500 MG TAB PO SCH ×3 (09:31→22:55)
--- NOTE | 2018-10-08 09:35 | NUR ---
Malena Mendosa called back. ordered Barreto catheter.
--- NOTE | 2018-10-08 09:38 | NUR ---
Explained to the patient the need for Barreto catheter insertion as per Urologist Dr. Denney. Patient has facial grimacing, patient is uncomfortable to have a Barreto catheter. Will inform Dr. Denney.
--- NOTE | 2018-10-08 09:48 | NUR ---
Called Malena Mendosa Informed that patient is uncomfortable to have a Barreto catheter insertion, patient refused it.
[2018-10-08] MEDS ORDERED: MANNITOL 20% SOLN 100 gm/500ml 62.5 ML IV ONE (10:00)
--- NOTE | 2018-10-08 10:15 | NUR ---
Malena Mendosa at bedside for Urology Consult.
[2018-10-08] MEDS: MORPHINE SULF INJ 2 MG/ML SYRINGE 1ML IV PRN ×2 (11:42→21:24)
[2018-10-08] MEDS: ONDANSETRON HCL 4 MG/2 ML VIAL IV PRN (11:42)
--- NOTE | 2018-10-08 11:42 | NUR ---
Patient stated she's in severe pain, patient is vomiting yellowish fluid on the emesis bag. Zofran given for nausea/vomiting, Morphine Sulf 1 mg for severe pain.
--- NOTE | 2018-10-08 11:48 | NUR ---
Barreto catheter 16 Fr inserted as ordered, draining clear, charo urine.
--- NOTE | 2018-10-08 11:50 | NUR ---
Dr. Franco at bedside. made aware Malena Mendosa came over for Urology Consult and ordered Mannitol and Barreto catheter insertion.
[2018-10-08 13:00] VITALS: BP 118/68
--- NOTE | 2018-10-08 13:04 | NUR ---
Alisha Bryant came over. MD ordered to resume Atenolol same dose and frequency as patient is taking at home.
[2018-10-08] MEDS ORDERED: ATENOLOL 25 MG TAB PO ONE (13:15)
[2018-10-08 17:00] VITALS: BP 100/63
[2018-10-08] MEDS: TAMSULOSIN HYDROCHLORIDE 0.4 MG CAP PO SCH (18:27)
[2018-10-08] MEDS: traMADol HCL 50 MG TAB PO PRN (18:42)
--- NOTE | 2018-10-08 18:42 | NUR ---
Patient stated she's i pain, refused Morphine at this time. Tramadol PO given for pain as ordered.
--- NOTE | 2018-10-08 19:30 | NUR ---
Opening Shift Note Assumed care of patient, awake and alert. No S/S of distress/SOB or pain. Insructed on POC and to callfor assist PRN, will continue to monitor for changes Q1hr and PRN. Fall and safety precautions in place. Call light within reach. Pt refusing to ambulate, stating her "pain" and "kidney stone" prevents her from getting out of bed. Attempted to educate patient, but refusing education.
--- NOTE | 2018-10-08 21:15 | NUR ---
2200 JESSICARO Entered room to give patient 2200 Rodger, pt talking on phone, stating "just leave it there" and pointing to bedside table. Informed patient that medication cannot be left at bedside and must be taken while I'm in the room. Patient stated she didn't want to take medication at this time and to come back later. Medication administration was undone in EMAR. Will re-attempt at later time.
[2018-10-08 22:00] VITALS: BP 97/69
--- NOTE | 2018-10-09 04:50 | NUR ---
URINE OUTPUT Pt had 50ml urine output in valdez throughout shift. Valdez catheter checked for kinks, checked for positioning below bladder level. Valdez draining well. Bladder scan performed, showing 0ml. Lower abdomen not distended, pt denies pain in anterior lower abdomen, but states pain 7/10 in lower back. Pt states she "barely" drank water throughout night. Pt states she "usually never" drinks water and "drinks a lot of iced tea." Educated patient on drinking more water to maintain kidney function and adequate urine output. Will inform day shift RN.
--- NOTE | 2018-10-09 05:02 | NUR ---
HOSPITALIST Paged hospitalist regarding low BP. Awaiting call back.
[2018-10-09] MEDS: KETOROLAC TROMETH 30 MG/ML 1ML VIAL IV PRN (05:19)
[2018-10-09 05:22] VITALS: BP 86/53
--- NOTE | 2018-10-09 05:30 | NUR ---
HOSPITALIST Received call back from Natalie Cintron NP regarding low BP. New orders received, read back and verified. Will input and carry out.
--- NOTE | 2018-10-09 06:00 | NUR ---
IV insertion IV access obtained, via clean sterile technique by inserting 20 gauge catheter at LFA after first attempt. IV secured properly. No trauma to site. Patient tolerated well. IV removal IV DC'd with clean sterile technique, catheter fully intact. Pressure dressing applied to site. Patient tolerated well. NOTE: RFA 22g removed due to redness and infiltration. Addendum: 10/09/18 at 0622 by Ceci Vuong RN RN New IV insertion in LAC, not LFA
[2018-10-09] MEDS ORDERED: SODIUM CHLORIDE 0.9% 500 ML IV ONE (06:15)
[2018-10-09 06:47] VITALS: BP 92/54
--- NOTE | 2018-10-09 06:48 | NUR ---
BP Rechecked BP after 500ml bolus; 92/54 HR 66. Will inform day shift RN
--- NOTE | 2018-10-09 07:30 | NUR ---
Opening Shift Note Assumed care of patient, awake and alert x4. No S/S of distress/SOB on room air. Reports abdominal pain left lower quadrant,explain pain management and low BP, Bed locked in lowest position call light within reach. Instructed on POC and to call for assist PRN, will continue to monitor for changes Q1hr and PRN.verbalized understanding.
[2018-10-09 08:36] VITALS: BP 84/43
[2018-10-09 09:14] LABS: Basophils # (auto) 0 uL; Basophils % (auto) 0.6 % (0.0-2.0); Eosinophils # (auto) 0.4 uL; Hematocrit 41.4 % (36.0-46.0); Hemoglobin 14.1 g/dL (12.2-16.2); Lymphocytes # (auto) 1.5 uL; Lymphocytes % (auto) 19.4 % (10.0-50.0); Mean Corpuscular Hemoglobin 29.6 pg (28.0-32.0); Mean Corpuscular Hgb Conc. 34.1 g/dL (32.0-36.0); Mean Corpuscular Volume 86.9 fL (80.0-100.0); Monocytes # (auto) 0.6 uL; Monocytes % (auto) 7.6 % (0.0-12.0); Neutrophils # (auto) 5.1 uL; Neutrophils % (auto) 67.4 % (37.0-80.0); Platelet Count (auto) 164 10^3/uL (140-450); Red Blood Cells 4.77 10^6/uL (4.0-5.20); White Blood Cell 7.5 10^3/uL (4.4-10.8)
[2018-10-09 09:18] LABS: BUN/Creatinine Ratio 17.5; Calcium 8.1 mg/dL (8.5-10.1); Magnesium 2.1 mg/dL (1.6-2.6); Potassium 3.2 mmol/L (3.5-5.1)
[2018-10-09 09:21] LABS: Bilirubin, Total 0.7 mg/dL (0.2-1.0); Total Protein 6.1 g/dL (6.4-8.2)
--- NOTE | 2018-10-09 09:26 | NUR ---
RECEIVED RESULT OF URINE C&S POSITIVE FOR E. COLI AND ESBL
--- NOTE | 2018-10-09 09:28 | NUR ---
assessment Patient is a 78 year old female who is alert and oriented. Prior to admission patient lived home alone and functioned independently. Per patient she will return home with her son Matthew on discharge. Patient feels safe returning home with her son. Patient has no post discharge needs at this time. Patient has no need for DME. Patients PCP is Dr Haro. I informed patient she has a right to speak to a social and human services assistant regarding all care. I informed patient she has a right to participate in any and all discharge planning. Patient is aware of visiting hours on the hospital floor. I informed patient she has a right to privacy. Patient does not have a POA and advanced directive. Patient informed me she is in the process of doing the paperwork now. Patient verbalized understanding and agreed to discharge plan. Addendum: 10/09/18 at 0932 by Hoa BOSTON Amended: Links added.
--- NOTE | 2018-10-09 09:30 | NUR ---
CRYSTAL CHARGE NURSE MADE AWARE OF URINE C&S RESULT POSITIVE FOR ESBL,PATIENT PUT IN ISOLATION ROOM,ISOLATION SENIOR INTERACTION DESIGNER IN PLACE TO DOOR.PATIENT MADE AWARE AND EXPLAIN INDICATION OF ABOVE,VERBALIZED UNDERSTANDING.
[2018-10-09] MEDS ORDERED: POTASSIUM CHL 20 Meq TABLET PO ONE (09:45)
[2018-10-09] MEDS: FLUCONAZOLE 200MG/100ML 100 ML IV SCH (09:52)
[2018-10-09] MEDS: traMADol HCL 50 MG TAB PO PRN ×2 (09:53→17:44)
[2018-10-09] MEDS ORDERED: ATENOLOL 25 MG TAB PO SCH (10:00)
--- NOTE | 2018-10-09 10:35 | NUR ---
MD VISIT DR. MACHUCA HERE TO SEE AND EXAMINED PATIENT,INFORMED OF C/O LEFT LOWER QUADRANT ABDOMINAL PAIN,DECREASED URINE OUTPUT 50 ML. FROM NOC SHIFT,URINE C&S POSITIVE FOR E.COLI AND ESBL,STATED AWARE OF RESULTS.
--- NOTE | 2018-10-09 10:50 | NUR ---
DR. PERRIN SPOKE TO PATIENT EXPLAIN DISEASE PROCESS AND PLAN OF CARE
[2018-10-09] MEDS ORDERED: IOHEXOL 300 MG/ML 100ML BOTTLE IJ ONE ×2 (10:58→15:48)
[2018-10-09] MEDS ORDERED: GASTROGRAFIN 30 ML SOL ONE (10:58)
[2018-10-09] MEDS: ERTAPENEM SOD INJ 1 GM in SODIUM CHL 0.9% 50 ML IV SCH (11:15)
--- NOTE | 2018-10-09 11:20 | NUR ---
PATIENT INSTRUCTED REMINDED TO KEEP NPO FOR CT SCAN OF ABDOMEN,ENCOURAGED TO FINISH ORAL CONTRAST IT NEEDED FOR THE CT SCAN STUDY.
--- NOTE | 2018-10-09 12:03 | NUR ---
Nutrition Follow-up Notes Wt.: 69.6 kg Pt was sleeping with no family by bedside. per records pt with resolving UTI. per records pt s/p dilation for esophageal stricture. pt with chronic diarr and to have Gastrografin study. pt with no distress noted per nursing. pt is currently on regular diet with adequate PO of 75% x 6 per RN doc Est. Needs: 1750 kcal to 2100 kcal (25-30 kcal/kgBW), 50 gms to 70 gms pro (0.8-1.0 gm/kgBW). Will continue to monitor pertinent labs and reassess nutrient need prn Labs: GLU 124 H, CAA 8.3 L Skin: Clint scale 17, mod risk, skin intact per medical safety director. GI: Pt had 1 BM today per medical safety director. PES: Altered nutrition related lab values r/t current/chronic medical condition aeb hyperglycemia, hyperchloremia and hypocalcemia Will continue to monitor PO intake, skin status, pertinent labs and weight trend. F/u in 3 to 5 days. Rec.: 1.) Continue close supervision and feeding assistance prn during meals. 2.) If pt's PO intake remains inadequate (<75%), consider Ensure Enlive 1 carton BID. 3.) Refer to RD for further nutrition education and weight monitoring upon discharged. 4.) Continue current plan of care.
[2018-10-09 12:37] VITALS: BP 101/64
--- NOTE | 2018-10-09 13:18 | NUR ---
called primary rn to get complete home IV ABX order and then will refax to [facility].
--- NOTE | 2018-10-09 13:19 | NUR ---
CLARIFIED ORDER FROM DR. PERRIN FOR HOME MERYL MCLEOD 1 GRAM IVPB DAILY Addendum: 10/09/18 at 1321 by Yvonne Abreu RN RN ORDER EDITED AND ENTERED PER MD UREÑA
--- NOTE | 2018-10-09 14:27 | NUR ---
PT REFUSED P.T. TODAY.
--- NOTE | 2018-10-09 15:54 | NUR ---
Midline Placement Patient educated on need for midline placement. All risks and benefits explained and all questions and concerns addresses prior to procedure. 18g/10cm midline inserted via left basilic vein using Ultrasound. Sterile technique utilized. Blood return obtained from single lumen and flushed easily with NS using proper technique. Midline secured with saline lock; biodisc and occlusive dressing applied. Primary RN notified. Midline lot #[id number].
[2018-10-09 16:46] VITALS: BP 104/61
--- NOTE | 2018-10-09 17:01 | NUR ---
re-assessment Per ss consult home IV ABX for Invanze 1gm daily for 14 days. MD order has been sent to [facility] by manager of case management Melania. Addendum: 10/09/18 at 1703 by Hoa Owusu Amended: Links added.
[2018-10-09] MEDS: TAMSULOSIN HYDROCHLORIDE 0.4 MG CAP PO SCH (17:42)
[2018-10-09] MEDS: ENOXAPARIN SOD 40 MG/0.4 ML SYRINGE SC SCH (17:44)
--- NOTE | 2018-10-09 18:00 | NUR ---
Patient refused to received Lovenox,stated its contraindicated to one of her medication,asked which medication but can not remember,explain and educated indication and importance but still refused.
--- NOTE | 2018-10-09 19:00 | NUR ---
STATUS UNCHANGED,NO DISTRESS NO DISCOMFORT.RESTING QUIETLY IN BED,REPORT GIVEN TO INCOMING NOC SHIFT R.N.
[2018-10-09] MEDS ORDERED: SODIUM CHLORIDE 0.9% 1,000 ML IV SCH (19:15)
--- NOTE | 2018-10-09 19:30 | NUR ---
Opening Shift Note Assumed care of patient, awake and alert. No S/S of distress/SOB or pain. Insructed on POC and to callfor assist PRN, will continue to monitor for changes Q1hr and PRN. Fall and safety precautions in place. Call light within reach. Family at bedside, educated them on ambulation. Family verbalized understanding and attempted to educate patient, but patient refusing to be educated.
--- NOTE | 2018-10-09 20:30 | NUR ---
FAMILY EDUCATION Spoke with son Matthew in [facility] and updated him on plan of care. Matthew verbalized understanding and is agreeable.
[2018-10-09 21:38] VITALS: BP 91/56
[2018-10-10 05:27] VITALS: BP 101/57
--- NOTE | 2018-10-10 08:00 | NUR ---
Opening Shift Note Assumed care of patient, awake and alert. No S/S of SOB. Instructed on POC and to call for assist PRN, will continue to monitor for changes Q1hr and PRN.
[2018-10-10 09:00] VITALS: BP 106/63
--- NOTE | 2018-10-10 09:04 | NUR ---
[facility] has accepted pt and start of care dependent on D/C of pt
[2018-10-10] MEDS: traMADol HCL 50 MG TAB PO PRN ×2 (09:16→16:20)
[2018-10-10] MEDS: LOPERAMIDE HCL 2 MG CAP PO PRN (09:16)
[2018-10-10] MEDS: ENOXAPARIN SOD 40 MG/0.4 ML SYRINGE SC SCH (09:23)
[2018-10-10] MEDS: ERTAPENEM SOD INJ 1 GM in SODIUM CHL 0.9% 50 ML IV SCH (09:24)
--- NOTE | 2018-10-10 09:28 | NUR ---
[facility] is ready to start care of pt as soon as we get D/C order
--- NOTE | 2018-10-10 09:30 | NUR ---
Abd pain/diarrhea Patient c/o abdominal pain and stated she "waited too long between pain medication". This nurse suggested she take a pain medication before bed or during the night to avoid waking up in severe pain in the morning. Patient agreed. She also c/o having diarrhea. Imodium PRN was given.
[2018-10-10] MEDS: FLUCONAZOLE 200MG/100ML 100 ML IV SCH (10:00)
[2018-10-10 13:00] VITALS: BP 119/72
--- NOTE | 2018-10-10 15:03 | NUR ---
DR ALMANZA STATED PT WILL GO HOME WITH RIVERA
--- NOTE | 2018-10-10 15:16 | NUR ---
[facility] aware pt is d/c today I also called both agencies and updated them on pt's address she will be staying. [place] [address] [place], [place]
--- NOTE | 2018-10-10 16:42 | NUR ---
DISCHARGE PATIENT ALERT AND ORIENTED. WENT OVER DISCHARGE PAPERWORK WITH PATIENT AND ANSWERED ALL QUESTIONS. ALL MEDICATIONS ORDERED WERE RECEIVED FROM [facility] DIRECTLY TO THE PATIENT. PATIENT TOOK ALL BELONGINGS AND LEFT WITH FAMILY IN PERSONAL VEHICLE. WILL BE STAYING WITH HER SON AND RECEIVING IV ANTIBIOTICS AT HOME SO IV WAS LEFT IN AT DISCHARGE.
== END 2018-10-10 16:53 | disposition home or self-care (01) | DRG 392 ==
LOC: WEST WING 17:11
PROVIDERS: ADMIT Nurse Practitioner Acute Care; ATTEND Internal Medicine
PROC: 0D758ZZ Dilation of Esophagus, Via Natural or Artificial Opening Endoscopic (ICD-10-PCS; 2018-10-03)
PROC: 0DB68ZX Excision of Stomach, Via Natural or Artificial Opening Endoscopic, Diagnostic (ICD-10-PCS; principal; 2018-10-03 12:40)
DX: K22.2 Esophageal obstruction (principal); N39.0 Urinary tract infection, site not specified; M48.54XA Collapsed vertebra, not elsewhere classified, thoracic region, initial encounter for fracture; M19.90 Unspecified osteoarthritis, unspecified site; K57.30 Diverticulosis of large intestine without perforation or abscess without bleeding; K21.9 Gastro-esophageal reflux disease without esophagitis; K29.60 Other gastritis without bleeding; K44.9 Diaphragmatic hernia without obstruction or gangrene; N20.0 Calculus of kidney; Z16.12 Extended spectrum beta lactamase (ESBL) resistance; B96.20 Unspecified Escherichia coli [E. coli] as the cause of diseases classified elsewhere; N28.1 Cyst of kidney, acquired; Z79.83 Long term (current) use of bisphosphonates; Z90.49 Acquired absence of other specified parts of digestive tract
CPT/HCPCS: 36415; 43239; 71045; 74176; 74177; 80053; 80061; 81001; 82150; 83690; 83735; 84443; 85025; 85610; 85730; 86850; 86900; 86901; 87086; 87088; 87186; 93005; A6257; C9113; G0378; J0696; J1335; J1450; J1885; J2250; J2405; J7060

== ENCOUNTER → 2018-10-23 | Outpatient (CLI) | payer OTHER ==
[~2018-10-23] MED LIST changes: -ALEN70TA2 OR; +ATEN-60 PO; +OMEP20TA PO; +POM PO
== END | disposition home or self-care (01) ==
LOC: LAB 14:52
PROVIDERS: ATTEND Internal Medicine
DX: N39.0 Urinary tract infection, site not specified (principal); Z22.39 Carrier of other specified bacterial diseases
CPT/HCPCS: 87086

== ENCOUNTER → 2018-11-07 | Outpatient (CLI) | payer OTHER | END | disposition home or self-care (01) | LOC: LAB 10:40 | PROVIDERS: ATTEND Internal Medicine | DX: N39.0 Urinary tract infection, site not specified (principal); Z22.39 Carrier of other specified bacterial diseases | CPT/HCPCS: 87086 ==

== ENCOUNTER → 2019-04-01 | Outpatient (CLI) | payer OTHER ==
[2019-04-01 13:10] LABS: Basophils # (auto) 0.1 uL; Eosinophils # (auto) 0.3 uL; Eosinophils % (auto) 3.9 % (0.0-7.0); Hemoglobin 15.1 g/dL (12.2-16.2); Lymphocytes # (auto) 1.7 uL; Lymphocytes % (auto) 23.6 % (10.0-50.0); Mean Corpuscular Hemoglobin 29.2 pg (28.0-32.0); Mean Corpuscular Hgb Conc. 33.5 g/dL (32.0-36.0); Mean Corpuscular Volume 87.2 fL (80.0-100.0); Monocytes # (auto) 0.5 uL; Monocytes % (auto) 6.6 % (0.0-12.0); Neutrophils # (auto) 4.6 uL; Neutrophils % (auto) 64.9 % (37.0-80.0); Nucleated Red Blood Cells % 0.1 %; Platelet Count (auto) 196 10^3/uL (140-450); Red Blood Cells 5.16 10^6/uL (4.0-5.20); Red Cell Distribution Width 13.8 % (11.8-14.3); White Blood Cell 7.1 10^3/uL (4.4-10.8)
[2019-04-01 13:26] LABS: Urine Bacteria NONE SEEN /hpf (None Seen); Urine Blood TRACE /uL (Negative); Urine Specific Gravity 1.006 (1.001-1.035); Urine WBC 1 /hpf (0 - 5)
== END | disposition home or self-care (01) ==
LOC: LAB 12:31
PROVIDERS: ATTEND Internal Medicine
DX: E87.6 Hypokalemia (principal); E53.8 Deficiency of other specified B group vitamins
CPT/HCPCS: 36415; 81001; 82607; 84132; 85025

== ENCOUNTER → 2019-05-21 | Outpatient (CLI) | payer OTHER ==
[~2019-05-21] MED LIST changes: +COLE1TAB2 PO
[2019-05-21 12:56] LABS: Basophils # (auto) 0 uL; Basophils % (auto) 0.6 % (0.0-2.0); Eosinophils # (auto) 0.2 uL; Eosinophils % (auto) 2.1 % (0.0-7.0); Hematocrit 44.3 % (36.0-46.0); Hemoglobin 14.9 g/dL (12.2-16.2); Lymphocytes # (auto) 1.8 uL; Lymphocytes % (auto) 23.5 % (10.0-50.0); Mean Corpuscular Hgb Conc. 33.5 g/dL (32.0-36.0); Mean Corpuscular Volume 86.6 fL (80.0-100.0); Monocytes # (auto) 0.5 uL; Monocytes % (auto) 6.6 % (0.0-12.0); Neutrophils # (auto) 5.1 uL; Neutrophils % (auto) 67.2 % (37.0-80.0); Nucleated Red Blood Cells % 0.1 %; Platelet Count (auto) 179 10^3/uL (140-450); Red Blood Cells 5.12 10^6/uL (4.0-5.20); White Blood Cell 7.6 10^3/uL (4.4-10.8)
[2019-05-21 13:13] LABS: INR 0.99 (0.9-1.15); Partial Thromboplastin Time 25.6 sec (23.64-32.05)
[2019-05-21 13:16] LABS: Albumin 3.6 g/dL (3.4-5.0); Calcium 8.6 mg/dL (8.5-10.1); Potassium 3.8 mmol/L (3.5-5.1)
[2019-05-21 13:20] LABS: BUN/Creatinine Ratio 12.2; Bilirubin, Total 0.4 mg/dL (0.2-1.0); Total Protein 7.2 g/dL (6.4-8.2)
[2019-05-22 10:31] LABS: Urine Bacteria NONE SEEN /hpf (None Seen); Urine Blood Negative /uL (Negative); Urine Specific Gravity 1.009 (1.001-1.035); Urine WBC 5 /hpf (0 - 5)
== END | disposition home or self-care (01) ==
LOC: LAB 12:35
PROVIDERS: ATTEND Internal Medicine
DX: Z01.812 Encounter for preprocedural laboratory examination (principal); T82.111A Breakdown (mechanical) of cardiac pulse generator (battery), initial encounter
CPT/HCPCS: 36415; 80053; 81001; 85025; 85610; 85730

== ENCOUNTER 2019-05-22 10:16 | Day surgery (SDC) | payer OTHER ==
[~2019-05-22] VITALS: Ht 165.1 cm; Wt 66.7 kg
[~2019-05-22 10:16] MED LIST changes: -CHOLESTID; -OMEP20TA PO
[2019-05-22] MEDS ORDERED: ceFAZolin 1GM/50ML 50 ML IV ONE ×2 (10:51→11:00)
[2019-05-22] MEDS ORDERED: MIDAZOLAM HCL 1MG/1ML-2 ML VIAL ONE ×2 (13:35→14:01)
[2019-05-22] MEDS ORDERED: fentaNYL CITRATE 100 MCG/2 ML VL ONE ×2 (13:35→14:12)
[2019-05-22] MEDS ORDERED: diphenhdrAMINE HCL 50 MG/1 ML VL ONE (13:35)
[2019-05-22] MEDS ORDERED: VANCOMYCIN 1GM/250ML 250 ML IV ONE (13:40)
[2019-05-22] MEDS ORDERED: LIDOCAINE 2%HCL (LOCAL ANESTH.) INJ 20ML MDV ONE (13:40)
[2019-05-22] MEDS ORDERED: VANCOMYCIN HCL 1000 MG VL ONE (13:40)
== END 2019-05-22 17:10 | disposition home or self-care (01) ==
LOC: CATH 10:16
PROVIDERS: ATTEND Internal Medicine
DX: Z45.010 Encounter for checking and testing of cardiac pacemaker pulse generator [battery] (principal); I10 Essential (primary) hypertension; E78.5 Hyperlipidemia, unspecified; Z87.891 Personal history of nicotine dependence; Z79.899 Other long term (current) drug therapy; Z90.710 Acquired absence of both cervix and uterus; Z98.890 Other specified postprocedural states
CPT/HCPCS: 33227; C1786; J0690; J1200; J2250; J3010; J3370; 99152; 99153; C1785

== ENCOUNTER → 2019-10-29 | Emergency (ER) | payer OTHER ==
[~2019-10-29] VITALS: Ht 165.1 cm; Wt 64.4 kg
[~2019-10-29] MED LIST changes: +HYDROcodone-ACET 5/325MG TAB PO ONE; +KETOROLAC TROMETH 30 MG/ML 1ML VIAL IV ONE; +MORPHINE SULFATE 4 MG/ML SYR/VIAL IV ONE; +ONDANSETRON HCL 4 MG/2 ML VIAL IV ONE; +SODIUM CHLORIDE 0.9% 1,000 ML IV ONE; +SODIUM CHLORIDE 0.9% 1,000 ML IVB ONE
[2019-10-29 18:53] LABS: Basophils # (auto) 0.1 10 ^3/uL (0-0.2); Basophils % (auto) 0.6 % (0.0-2.0); Eosinophils # (auto) 0.2 10 ^3/uL (0-0.8); Eosinophils % (auto) 1.9 % (0.0-7.0); Hematocrit 45.9 % (36.0-46.0); Hemoglobin 15.5 g/dL (12.2-16.2); Lymphocytes # (auto) 1.8 10 ^3/uL (0.4-5.4); Lymphocytes % (auto) 15.2 % (10.0-50.0); Mean Corpuscular Hemoglobin 29.1 pg (28.0-32.0); Mean Corpuscular Hgb Conc. 33.8 g/dL (32.0-36.0); Monocytes # (auto) 0.7 10 ^3/uL (0-1.3); Monocytes % (auto) 5.8 % (0.0-12.0); Neutrophils # (auto) 9.1 10 ^3/uL (1.6-8.6); Neutrophils % (auto) 76.5 % (37.0-80.0); Nucleated Red Blood Cells % 0.1 %; Platelet Count (auto) 189 10^3/uL (140-450); Red Blood Cells 5.34 10^6/uL (4.0-5.20); Red Cell Distribution Width 14.1 % (11.8-14.3); White Blood Cell 11.8 10^3/uL (4.4-10.8)
[2019-10-29 19:07] LABS: INR 0.96 (0.9-1.15); Partial Thromboplastin Time 25.4 sec (23.64-32.05)
[2019-10-29 19:09] LABS: Albumin 3.8 g/dL (3.4-5.0); BUN/Creatinine Ratio 11.9; Calcium 8.7 mg/dL (8.5-10.1)
[2019-10-29 19:11] LABS: Bilirubin, Total 0.5 mg/dL (0.2-1.0); Lactic Acid w/Reflex 2.1 mmol/L (0.4-2.0); Total Protein 7.5 g/dL (6.4-8.2)
[2019-10-29 22:00] VITALS: BP 141/63
== END | disposition home or self-care (01) ==
LOC: ER 18:08
DX: N20.0 Calculus of kidney (principal); N13.30 Unspecified hydronephrosis
CPT/HCPCS: 36415; 74176; 76705; 80053; 83605; 85025; 85610; 85730; 96374; 99285; J1885

== ENCOUNTER → 2019-12-06 | Outpatient (CLI) | payer OTHER ==
[~2019-12-06] MED LIST changes: -HYDROcodone-ACET 5/325MG TAB PO ONE; -KETOROLAC TROMETH 30 MG/ML 1ML VIAL IV ONE; -MORPHINE SULFATE 4 MG/ML SYR/VIAL IV ONE; -ONDANSETRON HCL 4 MG/2 ML VIAL IV ONE; -SODIUM CHLORIDE 0.9% 1,000 ML IV ONE; -SODIUM CHLORIDE 0.9% 1,000 ML IVB ONE
[2019-12-06 13:16] LABS: Basophils # (auto) 0.1 10 ^3/uL (0-0.2); Basophils % (auto) 0.6 % (0.0-2.0); Eosinophils # (auto) 0.1 10 ^3/uL (0-0.8); Eosinophils % (auto) 1.7 % (0.0-7.0); Hemoglobin 15.1 g/dL (12.2-16.2); Lymphocytes # (auto) 2.2 10 ^3/uL (0.4-5.4); Lymphocytes % (auto) 24.3 % (10.0-50.0); Mean Corpuscular Hemoglobin 28.8 pg (28.0-32.0); Mean Corpuscular Hgb Conc. 33.5 g/dL (32.0-36.0); Mean Corpuscular Volume 86.1 fL (80.0-100.0); Monocytes # (auto) 0.5 10 ^3/uL (0-1.3); Monocytes % (auto) 5.5 % (0.0-12.0); Neutrophils % (auto) 67.9 % (37.0-80.0); Nucleated Red Blood Cells % 0.2 %; Platelet Count (auto) 166 10^3/uL (140-450); Red Blood Cells 5.23 10^6/uL (4.0-5.20); Red Cell Distribution Width 14.8 % (11.8-14.3); White Blood Cell 8.9 10^3/uL (4.4-10.8)
[2019-12-06 14:08] LABS: Urine Bacteria NONE SEEN /hpf (None Seen); Urine Blood TRACE /uL (Negative); Urine Mucus FEW (None Seen); Urine Specific Gravity 1.006 (1.001-1.035); Urine WBC <1 /hpf (0 - 5)
[2019-12-06 14:17] LABS: Albumin 3.9 g/dL (3.4-5.0); Calcium 8.7 mg/dL (8.5-10.1); Potassium 3.9 mmol/L (3.5-5.1)
[2019-12-06 14:28] LABS: BUN/Creatinine Ratio 14.3; Bilirubin, Total 0.6 mg/dL (0.2-1.0); Total Protein 7.2 g/dL (6.4-8.2)
== END | disposition home or self-care (01) ==
LOC: LAB 12:55
PROVIDERS: ATTEND Internal Medicine
DX: R10.9 Unspecified abdominal pain (principal)
CPT/HCPCS: 36415; 80053; 81001; 85025

== ENCOUNTER 2019-12-11 20:16 | Inpatient (IN) | payer OTHER ==
[~2019-12-11] VITALS: Ht 165.1 cm; Wt 72.4 kg
[2019-12-11 22:51] LABS: Basophils # (auto) 0.1 10 ^3/uL (0-0.2); Basophils % (auto) 0.5 % (0.0-2.0); Eosinophils # (auto) 0 10 ^3/uL (0-0.8); Eosinophils % (auto) 0.4 % (0.0-7.0); Hematocrit 44.6 % (36.0-46.0); Hemoglobin 14.9 g/dL (12.2-16.2); Lymphocytes # (auto) 1.3 10 ^3/uL (0.4-5.4); Lymphocytes % (auto) 12.1 % (10.0-50.0); Mean Corpuscular Hemoglobin 28.9 pg (28.0-32.0); Mean Corpuscular Hgb Conc. 33.4 g/dL (32.0-36.0); Mean Corpuscular Volume 86.5 fL (80.0-100.0); Monocytes # (auto) 0.4 10 ^3/uL (0-1.3); Monocytes % (auto) 3.5 % (0.0-12.0); Neutrophils # (auto) 9.2 10 ^3/uL (1.6-8.6); Neutrophils % (auto) 83.5 % (37.0-80.0); Nucleated Red Blood Cells % 0.1 %; Platelet Count (auto) 166 10^3/uL (140-450); Red Blood Cells 5.16 10^6/uL (4.0-5.20); Red Cell Distribution Width 14.6 % (11.8-14.3); White Blood Cell 11.1 10^3/uL (4.4-10.8)
[2019-12-11 23:11] LABS: Albumin 3.8 g/dL (3.4-5.0); Calcium 8.9 mg/dL (8.5-10.1); Potassium 3.9 mmol/L (3.5-5.1)
[2019-12-11 23:18] LABS: BUN/Creatinine Ratio 12.8; Bilirubin, Total 0.7 mg/dL (0.2-1.0); Total Protein 7.3 g/dL (6.4-8.2)
[2019-12-12] MEDS ORDERED: ASPirin 81 mg TAB PO ONE (00:30)
[2019-12-12] MEDS ORDERED: ONDANSETRON HCL 4 MG/2 ML VIAL IV ONE (02:15)
[2019-12-12] MEDS ORDERED: MORPHINE SULF INJ 2 MG/ML SYRINGE 1ML IV ONE (02:15)
[2019-12-12] MEDS ORDERED: NITROGLYCERIN 0.4 MG SL TAB SL ONE (02:15)
[2019-12-12] MEDS ORDERED: ASPirin 325 MG TAB PO ONE (02:15)
[2019-12-12] MEDS ORDERED: CLOPIDOGREL BISULFATE 75 MG TAB PO ONE (02:15)
[2019-12-12] MEDS ORDERED: SODIUM CHLORIDE 0.9% 1,000 ML IV ONE (03:15)
[2019-12-12 03:40] LABS: INR 1.15 (0.9-1.15); Partial Thromboplastin Time 28.4 sec (23.64-32.05)
[2019-12-12] MEDS ORDERED: ACETAMINOPHEN 325 MG TAB PO PRN (05:45)
[2019-12-12] MEDS ORDERED: NITROGLYCERIN 0.4 MG SL TAB SL PRN (05:45)
[2019-12-12] MEDS ORDERED: ENOXAPARIN SOD 80 MG/0.8ML SYRINGE SC ONE (05:45)
[2019-12-12] MEDS ORDERED: cloNIDine HCL 0.1 MG TAB PO PRN (05:45)
[2019-12-12] MEDS ORDERED: TEMAZEPAM 15 MG CAP PO PRN (05:45)
[2019-12-12] MEDS ORDERED: ONDANSETRON HCL 4 MG/2 ML VIAL IV PRN (05:45)
[2019-12-12] MEDS ORDERED: MORPHINE SULF INJ 2 MG/ML SYRINGE 1ML IV PRN (05:45)
[2019-12-12 08:07] LABS: Alcohol, Urine < 3.0 mg/dL (0-10); Amphetamine Screen, Urine NEGATIVE (NEGATIVE); Barbiturate Scree,Urine NEGATIVE (NEGATIVE); Benzodiazephine Screen, Urine NEGATIVE (NEGATIVE); Cannabinoid Screen, Urine NEGATIVE (NEGATIVE); Cocaine Screen, Urine NEGATIVE (NEGATIVE); Opiate Scree,Urine NEGATIVE (NEGATIVE); Phencyclidine Screen, Urine NEGATIVE (NEGATIVE); Urine Bacteria NONE SEEN /hpf (None Seen); Urine Blood 1+ /uL (Negative); Urine Hyaline Cast FEW /lpf (0 - 2); Urine Mucus FEW (None Seen); Urine Specific Gravity 1.021 (1.001-1.035); Urine WBC 2 /hpf (0 - 5)
[2019-12-12] MEDS ORDERED: ASPirin 81 mg TAB PO SCH (10:00)
[2019-12-12] MEDS: FAMOTIDINE 20 MG TAB PO SCH (10:00)
[2019-12-12 11:04] LABS: Basophils # (auto) 0 10 ^3/uL (0-0.2); Basophils % (auto) 0.6 % (0.0-2.0); Eosinophils # (auto) 0.1 10 ^3/uL (0-0.8); Eosinophils % (auto) 1.5 % (0.0-7.0); Hematocrit 39.8 % (36.0-46.0); Hemoglobin 13.6 g/dL (12.2-16.2); Lymphocytes # (auto) 1.7 10 ^3/uL (0.4-5.4); Lymphocytes % (auto) 23.4 % (10.0-50.0); Mean Corpuscular Hemoglobin 29.7 pg (28.0-32.0); Mean Corpuscular Hgb Conc. 34.2 g/dL (32.0-36.0); Mean Corpuscular Volume 86.6 fL (80.0-100.0); Monocytes # (auto) 0.5 10 ^3/uL (0-1.3); Monocytes % (auto) 6.6 % (0.0-12.0); Neutrophils # (auto) 4.8 10 ^3/uL (1.6-8.6); Neutrophils % (auto) 67.9 % (37.0-80.0); Platelet Count (auto) 145 10^3/uL (140-450); Red Blood Cells 4.59 10^6/uL (4.0-5.20); Red Cell Distribution Width 14.4 % (11.8-14.3); White Blood Cell 7.1 10^3/uL (4.4-10.8)
[2019-12-12 12:08] LABS: Chloride 115 mmol/L (98-107); Potassium 4.1 mmol/L (3.5-5.1); Sodium 146 mmol/L (136-145)
[2019-12-12 12:09] LABS: Alanine Aminotransferase 21 U/L (13-56); Albumin 3.9 g/dL (3.4-5.0); Alkaline Phosphatase 67 U/L (45-117); Anion Gap 11 (5-15); Aspartate Aminotransferase 23 U/L (15-37); BUN/Creatinine Ratio 13.3; Bilirubin, Total 0.7 mg/dL (0.2-1.0); Blood Urea Nitrogen 13 mg/dL (7-18); Calcium 8.9 mg/dL (8.5-10.1); Carbon Dioxide 20 mmol/L (21-32); Cholesterol 163 mg/dL (< 200); GFR African American 71 mL/min; GFR Non-African American 58 mL/min; Glucose 113 mg/dL (74-106); HDL Cholesterol 73 mg/dL (40-59); LDL Cholesterol 89 mg/dL (< 100); Total Protein 7.6 g/dL (6.4-8.2); Triglycerides 60 mg/dL (< 150)
[2019-12-12] MEDS ORDERED: CYANOCOBALAMIN (B-12) 1000 MCG/1 ML VIAL IM ONE (12:45)
[2019-12-12] MEDS ORDERED: KETOROLAC TROMETH 30 MG/ML 1ML VIAL IV PRN (14:30)
[2019-12-12] MEDS: SODIUM CHLORIDE 0.9% 1,000 ML IV SCH ×2 (14:30→22:30)
--- NOTE | 2019-12-12 17:35 | NUR ---
Telemetry admit from ER MAURIZIO FINE Cele admitted to Telemetry unit after SBAR received. Patient oriented to JOSEFA JAMES, primary RN, unit, room, bed, and unit policies regarding patient care and visiting hours. Patient now on continuous telemetry monitoring, tele box # 38 and telemetry reading on arrival to unit is paced 63. Patient is alert and awake sitting up in bed with even and unlabored respirations. Bed is in lowest position, wheels are locked, side rails up x2, and call light is within reach. Pt weighed by bed scale and encouraged to call if they need something. All questions and concerns addressed, patient verbalized understanding. Will continue to monitor q1h and PRN.
[2019-12-12 18:00] VITALS: BP 146/62
--- NOTE | 2019-12-12 18:00 | NUR ---
PT REFUSING IV FLUIDS ATTEMPTED TO CONNECT PT TO ORDERED IV FLUIDS. PT REFUSING STATING "ALL IT IS GOING TO DO IT MAKE ME PEE A LOT. I ALREADY HAD A WHOLE BAG DOWNSTAIRS. I DO NOT NEED ANYMORE." PT EDUCATED ON IMPORTANCE OF RECEIVING IV HYDRATION. PT VERBALIZED UNDERSTANDING BUT STILL REFUSED IV FLUIDS. WILL CONTINUE TO EDUCATE PT. WILL CONTINUE TO MONITOR Q1H AND PRN.
[2019-12-12 22:00] VITALS: BP 136/70
[2019-12-12] MEDS ORDERED: ATORVASTATIN 20 MG TAB PO SCH (22:00)
--- NOTE | 2019-12-13 00:45 | NUR ---
Rounds Patient sleeping quietly in bed. Pt is on room air with even chest rise and fall present. No S/S of distress/SOB or pain. Will continue to monitor changes q1hr and PRN.
--- NOTE | 2019-12-13 03:30 | NUR ---
ASSUMED CARE ASSUMED CARE OF PATIENT AFTER REPORT RECEIVED FROM TAYA RIVERO. PATIENT ASLEEP, EVEN UNLABORED RESPIRATIONS. NO S/S OF DISTRESS, SOB OR PAIN. WILL CONTINUE TO MONITOR
[2019-12-13 05:16] VITALS: BP 125/62
[2019-12-13 05:24] LABS: Basophils # (auto) 0 10 ^3/uL (0-0.2); Eosinophils # (auto) 0.3 10 ^3/uL (0-0.8); Eosinophils % (auto) 6.4 % (0.0-7.0); Hemoglobin 13.4 g/dL (12.2-16.2); Lymphocytes # (auto) 1.7 10 ^3/uL (0.4-5.4); Lymphocytes % (auto) 33.4 % (10.0-50.0); Mean Corpuscular Hemoglobin 29.2 pg (28.0-32.0); Mean Corpuscular Hgb Conc. 33.6 g/dL (32.0-36.0); Mean Corpuscular Volume 86.8 fL (80.0-100.0); Monocytes # (auto) 0.4 10 ^3/uL (0-1.3); Monocytes % (auto) 7.1 % (0.0-12.0); Neutrophils # (auto) 2.7 10 ^3/uL (1.6-8.6); Neutrophils % (auto) 52.1 % (37.0-80.0); Nucleated Red Blood Cells % 0.1 %; Platelet Count (auto) 134 10^3/uL (140-450); Red Cell Distribution Width 14.5 % (11.8-14.3); White Blood Cell 5.1 10^3/uL (4.4-10.8)
[2019-12-13 05:35] LABS: BUN/Creatinine Ratio 17.7; Calcium 7.9 mg/dL (8.5-10.1); Potassium 3.7 mmol/L (3.5-5.1)
[2019-12-13] MEDS: SODIUM CHLORIDE 0.9% 1,000 ML IV SCH ×2 (06:30→14:30)
[2019-12-13 09:00] VITALS: BP 145/68
[2019-12-13] MEDS: FAMOTIDINE 20 MG TAB PO SCH (09:17)
[2019-12-13] MEDS ORDERED: CYANOCOBALAMIN 500 MCG TAB PO SCH (10:00)
[2019-12-13] MEDS ORDERED: ENOXAPARIN SOD 40 MG/0.4 ML SYRINGE SC SCH (10:00)
[2019-12-13] MEDS ORDERED: ASPirin 81 mg TAB PO SCH (10:00)
[2019-12-13 13:00] VITALS: BP 139/78
[2019-12-13 13:27] VITALS: BP 150/72
[2019-12-13 13:30] VITALS: BP 150/72
--- NOTE | 2019-12-13 15:53 | NUR ---
Discharge instructions given as ordered. Encourage to follow up with PMD as instructed. All questions and concerns addressed. Patient verbalized understanding. IV removed with catheter intact, pressure dressing applied. Telemetry unit returned to ICU. Patient taken to vehicle via wheelchair with all personal belongings, accompanied by staff. No distress noted at time of departure.
== END 2019-12-13 16:00 | disposition home or self-care (01) | DRG 281 ==
LOC: ER 20:17 → TELE 20:18 → TELE-CENTR 12-12 17:40
PROVIDERS: ADMIT Nurse Practitioner; ATTEND Internal Medicine
DX: I21.4 Non-ST elevation (NSTEMI) myocardial infarction (principal); N39.0 Urinary tract infection, site not specified; K40.90 Unilateral inguinal hernia, without obstruction or gangrene, not specified as recurrent; Z95.0 Presence of cardiac pacemaker; N28.1 Cyst of kidney, acquired; N20.0 Calculus of kidney; E78.5 Hyperlipidemia, unspecified; I10 Essential (primary) hypertension; K57.30 Diverticulosis of large intestine without perforation or abscess without bleeding; Z87.442 Personal history of urinary calculi; Z90.49 Acquired absence of other specified parts of digestive tract; Z90.710 Acquired absence of both cervix and uterus
CPT/HCPCS: 36415; 71045; 74176; 80048; 80053; 80061; 80307; 81001; 82150; 82607; 83036; 83690; 83735; 83880; 84443; 84484; 85025; 85610; 85730; 93005; 93306; 96361; 96374; 96375; G0378; J1885; J2405

== ENCOUNTER → 2020-02-11 | Outpatient (CLI) | payer OTHER ==
[~2020-02-11] VITALS: Ht 165.1 cm; Wt 63.5 kg
[~2020-02-11] MED LIST changes: +ADENOSINE 53 MG in GIVE UN-DILUTED 0 ML IV STA; -POM PO
[2020-02-11 10:01] VITALS: BP 141/79
== END | disposition home or self-care (01) ==
LOC: XY 09:07
PROVIDERS: ATTEND Internal Medicine
DX: I35.1 Nonrheumatic aortic (valve) insufficiency (principal)
CPT/HCPCS: 78452; 93017; A9500; J0153

== ENCOUNTER → 2020-12-22 | Outpatient (CLI) | payer OTHER ==
[~2020-12-22] MED LIST changes: -ADENOSINE 53 MG in GIVE UN-DILUTED 0 ML IV STA
== END | disposition home or self-care (01) ==
LOC: LAB 14:40
PROVIDERS: ATTEND Internal Medicine
DX: Z01.812 Encounter for preprocedural laboratory examination (principal)
CPT/HCPCS: 36415; 82565; 84520

== ENCOUNTER 2021-03-04 14:04 | Inpatient (IN) | payer OTHER ==
[2021-03-01 15:47] LABS: Basophils # (auto) 0.1 10 ^3/uL (0-0.2); Basophils % (auto) 0.7 % (0.0-2.0); Eosinophils # (auto) 0.3 10 ^3/uL (0-0.8); Hematocrit 45.9 % (36.0-46.0); Hemoglobin 15.2 g/dL (12.2-16.2); Lymphocytes # (auto) 2.3 10 ^3/uL (0.4-5.4); Mean Corpuscular Hemoglobin 28.5 pg (28.0-32.0); Mean Corpuscular Hgb Conc. 33.2 g/dL (32.0-36.0); Mean Corpuscular Volume 85.9 fL (80.0-100.0); Monocytes # (auto) 0.5 10 ^3/uL (0-1.3); Monocytes % (auto) 6.6 % (0.0-12.0); Neutrophils % (auto) 60.7 % (37.0-80.0); Nucleated Red Blood Cells % 0.3 %; Red Blood Cells 5.34 10^6/uL (4.0-5.20); Red Cell Distribution Width 14.5 % (11.8-14.3); White Blood Cell 8.2 10^3/uL (4.4-10.8)
[2021-03-01 16:03] LABS: Urine Bacteria NONE SEEN /hpf (None Seen); Urine Blood 3+ /uL (Negative); Urine Hyaline Cast FEW /lpf (0 - 2); Urine Mucus FEW (None Seen); Urine Specific Gravity 1.016 (1.001-1.035); Urine WBC 2 /hpf (0 - 5)
[2021-03-01 16:13] LABS: Albumin 3.8 g/dL (3.4-5.0); BUN/Creatinine Ratio 16.9; Calcium 8.9 mg/dL (8.5-10.1); Potassium 3.7 mmol/L (3.5-5.1)
[2021-03-01 16:16] LABS: Bilirubin, Total 0.5 mg/dL (0.2-1.0); Total Protein 7.5 g/dL (6.4-8.2)
[~2021-03-04] VITALS: Ht 165.1 cm; Wt 83.5 kg
[2021-03-04] MEDS ORDERED: ceFAZolin 1GM/50ML 100 ML IV ONE (14:49)
[2021-03-04] MEDS ORDERED: fentaNYL CITRATE 100 MCG/2 ML VL ONE (16:40)
[2021-03-04] MEDS ORDERED: IOHEXOL 300 MG/ML 100ML BOTTLE IJ ONE (17:16)
[2021-03-04] MEDS ORDERED: ONDANSETRON HCL 4 MG/2 ML VIAL ONE (18:23)
[2021-03-04] MEDS ORDERED: FUROSEMIDE 20 MG/2 ML VIAL ONE (19:14)
[2021-03-04] MEDS ORDERED: ONDANSETRON HCL 4 MG/2 ML VIAL IV PRN (19:45)
[2021-03-04] MEDS ORDERED: HYDROmorphone HCL 2 MG/ML VL IV PRN (19:45)
[2021-03-04] MEDS ORDERED: METOCLOPRAMIDE HCL 5MG/ml INJ 2ml VIAL ONE ×2 (20:50→20:53)
[2021-03-04] MEDS ORDERED: KETOROLAC TROMETH 30 MG/ML 1ML VIAL ONE (20:55)
[2021-03-04] MEDS ORDERED: METOCLOPRAMIDE HCL 5MG/ml INJ 2ml VIAL IV ONE (21:00)
[2021-03-04] MEDS ORDERED: KETOROLAC TROMETH 30 MG/ML 1ML VIAL IV ONE (21:00)
[2021-03-04] MEDS ORDERED: fentaNYL CITRATE 100 MCG/2 ML VL IM ONE (21:00)
[2021-03-04] MEDS ORDERED: MANNITOL FTV 25% 12.5 GM/50 ML 0 ML IV ONE (22:01)
[2021-03-04] MEDS ORDERED: MANNITOL FTV 25% 12.5 GM/50 ML 50 ML IV ONE ×3 (22:02→22:30)
[2021-03-04] MEDS ORDERED: HYDROmorphone HCL 2 MG/ML VL ONE (22:36)
[2021-03-04] MEDS ORDERED: NITROGLYCERIN 0.4 MG SL TAB SL PRN (23:30)
[2021-03-04 23:50] VITALS: BP 154/95
[2021-03-04] MEDS: SODIUM CHLORIDE 0.9% 1,000 ML IV SCH (23:50)
[2021-03-05] MEDS: HYDROmorphone HCL 2 MG/ML VL IV PRN ×3 (01:18→08:34)
[2021-03-05 06:00] VITALS: BP 143/79
[2021-03-05 09:00] VITALS: BP 167/98
[2021-03-05] MEDS ORDERED: HYDROmorphone HCL 2 MG/ML VL IV PRN (09:00)
[2021-03-05] MEDS ORDERED: HYDROcodone-ACET 10/325MG TAB PO PRN (09:00)
[2021-03-05] MEDS ORDERED: KETOROLAC TROMETH 30 MG/ML 1ML VIAL IV PRN (09:00)
[2021-03-05] MEDS: ONDANSETRON HCL 4 MG/2 ML VIAL IV PRN ×3 (09:08→17:09)
[2021-03-05] MEDS ORDERED: LIDOCAINE 2%HCL (LOCAL ANESTH.) INJ 20ML MDV ONE (09:47)
[2021-03-05] MEDS ORDERED: HEPARIN IN NS 1000Units/500mL 0 ML ONE (09:47)
[2021-03-05 09:55] LABS: INR 1.02 (0.9-1.15); Partial Thromboplastin Time 24.2 sec (23.6-33.0)
[2021-03-05] MEDS ORDERED: IODIXANOL 320MG/ML 100ML BTL IV ONE (09:55)
[2021-03-05] MEDS ORDERED: fentaNYL CITRATE 100 MCG/2 ML VL ONE (09:57)
[2021-03-05] MEDS ORDERED: MIDAZOLAM HCL 2MG/2ML 2ml VIAL (1mg/ml) ONE (09:57)
[2021-03-05 13:00] VITALS: BP 154/72
[2021-03-05 16:00] VITALS: BP 116/64
[2021-03-05] MEDS: SODIUM CHLORIDE 0.9% 1,000 ML IV SCH ×2 (17:12→18:30)
[2021-03-05 21:33] VITALS: BP 134/75
[2021-03-06 05:49] VITALS: BP 133/77
[2021-03-06] MEDS: SODIUM CHLORIDE 0.9% 1,000 ML IV SCH ×2 (06:00→16:35)
[2021-03-06 09:00] VITALS: BP 128/72
[2021-03-06] MEDS: ONDANSETRON HCL 4 MG/2 ML VIAL IV PRN ×2 (09:28→16:36)
[2021-03-06 11:13] LABS: Basophils # (auto) 0 10 ^3/uL (0-0.2); Basophils % (auto) 0.2 % (0.0-2.0); Eosinophils # (auto) 0 10 ^3/uL (0-0.8); Hematocrit 39.4 % (36.0-46.0); Lymphocytes # (auto) 1.1 10 ^3/uL (0.4-5.4); Lymphocytes % (auto) 9.5 % (10.0-50.0); Mean Corpuscular Hemoglobin 28.7 pg (28.0-32.0); Monocytes # (auto) 0.8 10 ^3/uL (0-1.3); Monocytes % (auto) 6.7 % (0.0-12.0); Neutrophils # (auto) 9.6 10 ^3/uL (1.6-8.6); Neutrophils % (auto) 83.6 % (37.0-80.0); Red Blood Cells 4.52 10^6/uL (4.0-5.20); Red Cell Distribution Width 14.6 % (11.8-14.3); White Blood Cell 11.5 10^3/uL (4.4-10.8)
[2021-03-06 11:33] LABS: BUN/Creatinine Ratio 19.8; Potassium 3.7 mmol/L (3.5-5.1)
[2021-03-06 13:00] VITALS: BP 125/56
[2021-03-06 22:00] VITALS: BP 161/59
[2021-03-07] MEDS: SODIUM CHLORIDE 0.9% 1,000 ML IV SCH ×3 (00:30→20:30)
[2021-03-07 05:00] VITALS: BP 154/83
[2021-03-07 09:00] VITALS: BP 147/76
[2021-03-07] MEDS: ATENOLOL 25 MG TAB PO SCH (10:04)
[2021-03-07] MEDS: ONDANSETRON HCL 4 MG/2 ML VIAL IV PRN (12:08)
[2021-03-07] MEDS: HYDROmorphone HCL 2 MG/ML VL IV PRN (12:08)
[2021-03-07 17:00] VITALS: BP 73/73
[2021-03-07 22:00] VITALS: BP 159/78
[2021-03-07] MEDS: HYDROcodone-ACET 10/325MG TAB PO PRN (22:15)
[2021-03-08] MEDS: HYDROmorphone HCL 2 MG/ML VL IV PRN ×3 (04:23→12:27)
[2021-03-08 05:00] VITALS: BP 138/65
[2021-03-08 06:00] LABS: INR 1.01 (0.9-1.15); Partial Thromboplastin Time 25.3 sec (23.6-33.0)
[2021-03-08] MEDS: SODIUM CHLORIDE 0.9% 1,000 ML IV SCH ×2 (06:46→17:53)
[2021-03-08 09:00] VITALS: BP 154/69
[2021-03-08 09:23] LABS: Urine Bacteria FEW /hpf (None Seen); Urine Blood 2+ /uL (Negative); Urine Specific Gravity 1.011 (1.001-1.035); Urine WBC 6 /hpf (0 - 5)
[2021-03-08] MEDS: ATENOLOL 25 MG TAB PO SCH (10:00)
[2021-03-08 12:38] VITALS: BP 146/67
[2021-03-08 17:00] VITALS: BP 193/85
[2021-03-08] MEDS ORDERED: cloNIDine HCL 0.1 MG TAB PO PRN (17:00)
[2021-03-08] MEDS: HYDROcodone-ACET 10/325MG TAB PO PRN (17:58)
[2021-03-08 22:00] VITALS: BP 106/57
[2021-03-09] MEDS: HYDROcodone-ACET 10/325MG TAB PO PRN ×2 (00:42→07:00)
[2021-03-09] MEDS: SODIUM CHLORIDE 0.9% 1,000 ML IV SCH ×3 (02:30→22:30)
[2021-03-09] MEDS: ONDANSETRON HCL 4 MG/2 ML VIAL IV PRN (04:58)
[2021-03-09] MEDS: HYDROmorphone HCL 2 MG/ML VL IV PRN ×3 (04:59→20:32)
[2021-03-09 05:00] VITALS: BP 142/53
[2021-03-09 09:00] VITALS: BP 158/71
[2021-03-09] MEDS ORDERED: LIDOCAINE 2%HCL (LOCAL ANESTH.) INJ 20ML MDV ONE (10:09)
[2021-03-09] MEDS ORDERED: IODIXANOL 320MG/ML 100ML BTL IV ONE (10:09)
[2021-03-09] MEDS ORDERED: MIDAZOLAM HCL 2MG/2ML 2ml VIAL (1mg/ml) ONE (10:30)
[2021-03-09] MEDS ORDERED: fentaNYL CITRATE 100 MCG/2 ML VL ONE (10:30)
[2021-03-09 13:00] VITALS: BP 116/78
[2021-03-09] MEDS: ATENOLOL 25 MG TAB PO SCH (13:00)
[2021-03-09 17:17] VITALS: BP 149/77
[2021-03-09 22:00] VITALS: BP 152/88
[2021-03-10 05:10] VITALS: BP 137/67
[2021-03-10] MEDS: HYDROcodone-ACET 10/325MG TAB PO PRN ×3 (06:39→23:09)
[2021-03-10 09:00] VITALS: BP 159/80
[2021-03-10] MEDS: SODIUM CHLORIDE 0.9% 1,000 ML IV SCH (09:23)
[2021-03-10] MEDS: ATENOLOL 25 MG TAB PO SCH (09:23)
[2021-03-10 13:00] VITALS: BP 152/73
[2021-03-10] MEDS: HYDROmorphone HCL 2 MG/ML VL IV PRN (14:42)
[2021-03-10 17:14] VITALS: BP 141/82
[2021-03-10 22:00] VITALS: BP 136/71
[2021-03-11] MEDS: HYDROcodone-ACET 10/325MG TAB PO PRN ×2 (04:40→09:30)
[2021-03-11 05:00] VITALS: BP 138/75
[2021-03-11 05:31] LABS: Basophils # (auto) 0 10 ^3/uL (0-0.2); Basophils % (auto) 0.7 % (0.0-2.0); Eosinophils # (auto) 0.2 10 ^3/uL (0-0.8); Eosinophils % (auto) 3.4 % (0.0-7.0); Hematocrit 38.9 % (36.0-46.0); Hemoglobin 13.6 g/dL (12.2-16.2); Lymphocytes # (auto) 2.3 10 ^3/uL (0.4-5.4); Lymphocytes % (auto) 35.5 % (10.0-50.0); Mean Corpuscular Hemoglobin 29.3 pg (28.0-32.0); Mean Corpuscular Hgb Conc. 34.9 g/dL (32.0-36.0); Monocytes # (auto) 0.6 10 ^3/uL (0-1.3); Monocytes % (auto) 9.3 % (0.0-12.0); Neutrophils # (auto) 3.3 10 ^3/uL (1.6-8.6); Neutrophils % (auto) 51.1 % (37.0-80.0); Nucleated Red Blood Cells % 0.1 %; Red Blood Cells 4.62 10^6/uL (4.0-5.20); Red Cell Distribution Width 13.7 % (11.8-14.3); White Blood Cell 6.5 10^3/uL (4.4-10.8)
[2021-03-11 05:57] LABS: Albumin 2.6 g/dL (3.4-5.0); Calcium 8.1 mg/dL (8.5-10.1)
[2021-03-11 06:05] LABS: BUN/Creatinine Ratio 12.5; Bilirubin, Total 0.6 mg/dL (0.2-1.0); Total Protein 5.6 g/dL (6.4-8.2)
[2021-03-11 08:33] LABS: Potassium 2.7 mmol/L (3.5-5.1)
[2021-03-11 09:00] VITALS: BP 132/69
[2021-03-11] MEDS: ATENOLOL 25 MG TAB PO SCH (09:29)
[2021-03-11] MEDS ORDERED: POTASSIUM CHL 20 Meq TABLET PO ONE (10:45)
[2021-03-11] MEDS ORDERED: POTASSIUM EFFERVESENT TAB 25 MEQ PO ONE (11:15)
[2021-03-11 13:00] VITALS: BP 129/72
== END 2021-03-11 15:07 | disposition home health service (06) | DRG 661 ==
LOC: SUR 14:04 → TELE-WESTW 23:28
PROVIDERS: ADMIT Nurse Practitioner Family; ATTEND Family Medicine
PROC: BT1F1ZZ Fluoroscopy of Left Kidney, Ureter and Bladder using Low Osmolar Contrast (ICD-10-PCS; 2021-03-04)
PROC: 0TC18ZZ Extirpation of Matter from Left Kidney, Via Natural or Artificial Opening Endoscopic (ICD-10-PCS; 2021-03-04 18:00)
PROC: 0T9130Z Drainage of Left Kidney with Drainage Device, Percutaneous Approach (ICD-10-PCS; principal; 2021-03-09)
PROC: BT42ZZZ Ultrasonography of Left Kidney (ICD-10-PCS; 2021-03-09)
PROC: BT121ZZ Fluoroscopy of Left Kidney using Low Osmolar Contrast (ICD-10-PCS; 2021-03-09)
DX: N13.2 Hydronephrosis with renal and ureteral calculous obstruction (principal); R31.9 Hematuria, unspecified; Z20.822 Contact with and (suspected) exposure to COVID-19; E87.6 Hypokalemia
CPT/HCPCS: 36415; 50430; 71045; 74425; 76775; 76942; 80048; 80053; 81001; 85025; 85610; 85730; 86850; 86900; 86901; 97116; 97163; 97530; 99152; C1729; G0378; J0690; J1885; J2250; J2405; Q9967

== ENCOUNTER → 2021-04-29 | Day surgery (SDC) | payer OTHER ==
[~2021-04-29] VITALS: Ht 165.1 cm; Wt 63.5 kg
[~2021-04-29] MED LIST changes: +GLYCOPYRROLATE 0.2 MG/ML 1ML VIAL IV ONE; +GLYCOPYRROLATE 0.2 MG/ML 1ML VIAL ONE; +IOHEXOL 300 MG/ML 100ML BOTTLE IJ ONE; +NEOSTIGMINE 1 MG/ML INJ (10mg/10ML VIAL) ONE; +ONDANSETRON HCL 4 MG/2 ML VIAL IV PRN; +PROPOFOL 10 MG/ML 20 ML IV ONE; +ROCURONIUM 10MG/ML 10ML VIAL IV ONE; +ceFAZolin 1GM/50ML 50 ML IV ONE; +fentaNYL CITRATE 100 MCG/2 ML VL IV PRN; +fentaNYL CITRATE 100 MCG/2 ML VL ONE
[2021-04-29 15:25] VITALS: BP 159/88
== END | disposition home or self-care (01) ==
LOC: SUR 11:36
PROVIDERS: ATTEND Urology
DX: T83.012A Breakdown (mechanical) of nephrostomy catheter, initial encounter (principal); N13.2 Hydronephrosis with renal and ureteral calculous obstruction; E11.9 Type 2 diabetes mellitus without complications; K21.9 Gastro-esophageal reflux disease without esophagitis; M19.90 Unspecified osteoarthritis, unspecified site; Z20.822 Contact with and (suspected) exposure to COVID-19; Z87.891 Personal history of nicotine dependence; Z90.710 Acquired absence of both cervix and uterus; Z95.0 Presence of cardiac pacemaker; Y82.8 Other medical devices associated with adverse incidents
CPT/HCPCS: 50389; 52356; 74018; 76000; C1769; C2617; J0690; J2704; J3010; J7030; Q9967; U0003